=== PATIENT | female | born 1965 | race Caucasian/White ===

== ENCOUNTER 2018-02-02 10:16 | Emergency (ER) | payer SELFPAY ==
--- NOTE | 2018-02-02 11:08 | EDM.PDOC ---
ED HPI GENERAL MEDICAL PROBLEM - General Chief Complaint: Upper Extremity Injury/Pain Stated Complaint: RT HAND PAIN Time Seen by Provider: 02/02/18 11:00 Source of Information: Reports: Patient, RN Notes Reviewed History Limitations: Reports: No Limitations - History of Present Illness INITIAL COMMENTS - FREE TEXT/NARRATIVE: 52 year old female presents to the clinic with 3-4 day history of right hand pain with associated swelling to her fingers. She just moved to town and has been carrying a lot of boxes. She otherwise denies known injury. 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 The pain is diffuse to her hand and wrist. The pain radiates up her forearm. The pain started in her hand. No specific area of pain. She has tried taking Ibuprofen 800mg TID and Tylenol in between as well as some left over prednisone with no improvement. No numbness or tingling. No history of gout. No fever or chills. Right Hand Pain Score (Numeric/FACES): 8 - Related Data Allergies Allergy/AdvReac Type Severity Reaction Status Date / Time indomethacin [From Indocin] Allergy Anaphylactic Verified 02/02/18 10:22 Shock levetiracetam [From Keppra] Allergy Vomiting Verified 02/02/18 10:22 lidocaine Allergy Edema Verified 02/02/18 10:22 Home Meds: Home Meds ALPRAZolam [Xanax XR] 2 mg PO TID PRN 02/02/18 [History] Atenolol 100 mg PO DAILY 02/02/18 [History] Hydrochlorothiazide 25 mg PO DAILY 02/02/18 [History] lamoTRIgine [Lamotrigine] 300 mg PO BID 02/02/18 [History] Past Medical History Cardiovascular History: Reports: Hypertension Neurological History: Reports: Seizure Social & Family History - Tobacco Use Smoking Status *Q: Current Every Day Smoker Years of Tobacco use: 30 Packs/Tins Daily: 1.5 - Recreational Drug Use Recreational Drug Use: No Review of Systems - Review of Systems Review Of Systems: See Below Constitutional: Reports: No Symptoms. Denies: Chills, Fever Eyes: Denies: Blurred Vision, Vision Change Musculoskeletal: Reports: Hand Pain, Joint Swelling Skin: Reports: Other (swelling to right hand). Denies: Bruising, Erythema Neurological: Reports: No Symptoms. Denies: Numbness, Tingling, Weakness ED EXAM, GENERAL - Physical Exam Exam: See Below Exam Limited By: No Limitations General Appearance: Alert, WD/WN, No Apparent Distress Respiratory/Chest: No Respiratory Distress, Lungs Clear, Normal Breath Sounds Cardiovascular: Regular Rate, Rhythm Extremities: Limited Range of Motion (due to swelling), Other (The patient's right hand is mildly swollen. She has no bony point tenderness. Full ROM to fingers. Mild redness to 2nd and 3rd fingers. Neurovascular status intact. No deformity or crepitus. ) Neurological: Alert, Oriented, Normal Cognition, Normal Gait, No Motor/Sensory Deficits Skin Exam: Warm, Dry, Intact Course - Vital Signs Last Recorded V/S: Last Vital Signs Temp 97.7 F 02/02/18 10:26 Pulse 69 02/02/18 10:26 Resp 17 02/02/18 10:26 BP 155/74 H 02/02/18 10:26 Pulse Ox 98 02/02/18 10:26 - Orders/Labs/Meds Orders: Active Orders 24 hr Category Date Time Status Hand Comp Min 3V Rt [CR] Stat Exams 02/02/18 11:07 Ordered Meds: Medications Discontinued Medications Generic Name Dose Route Start Last Admin Trade Name Freq PRN Reason Stop Dose Admin Ketorolac Tromethamine 60 mg 02/02/18 11:56 Toradol IM 02/02/18 11:57 ONETIME ONE - Radiology Interpretation Free Text/Narrative:: Right hand x-rays obtained. No fracture appreciated. Patient does have diffuse arthritic changes on x-ray but no acute abnormality. Formal radiologist interpretation is pending. - Re-Assessments/Exams Free Text/Narrative Re-Assessment/Exam: 02/02/18 11:59 X-rays unremarkable. Patient was given Toradol 60mg IM x1 for pain. She has a prescription for Diclofenac. She has take one dose with no adverse reactions. She reports a history of allergy to Indomethacin, stating that it caused her to stop breathing. She tolerates other NSAIDS and prednisone. She will be placed in a removable splint. She should f/u in clinic or with ortho if not improved in 7-10 days. Sooner if worse. We will have her start the Diclofenac 50mg TID and take Tylenol PRN. Departure - Departure Time of Disposition: 11:56 Disposition: Home, Self-Care 01 Condition: Good Clinical Impression: Arthritis of hand, right - Discharge Information Referrals: PCP,None [Primary Care Provider] - Forms: ED Department Discharge Additional Instructions: Rest and ice as tolerated Wear splint as tolerated Diclofenac 50mg 3 times a day Tylenol 1000mg every 8 hours as needed Follow-up in our clinic if not improved in 7-10 days, sooner if worse. [facility] [phone]. We also have two Orthopedic Surgeons, Dr. Dong and Dr. Boyd - My Orders Last 24 Hours: My Active Orders 02/02/18 11:07 Hand Comp Min 3V Rt [CR] Stat - Assessment/Plan Last 24 Hours: My Active Orders 02/02/18 11:07 Hand Comp Min 3V Rt [CR] Stat
[2018-02-02] MEDS ORDERED: Ketorolac 60 MG/2 ML SDV IM ONE (11:56)
--- NOTE | 2018-02-03 12:53 | CR ---
Right hand: Four views of the right hand were obtained. Comparison: No prior hand exam. No fracture, dislocation or other bony abnormality is identified. Impression: 1. No abnormality is appreciated and four-view right hand study. Diagnostic code #1
== END 2018-02-02 12:06 | disposition home or self-care (01) ==
LOC: JD.ED 10:16
DX: M19.041 Primary osteoarthritis, right hand (principal); I10 Essential (primary) hypertension; F17.210 Nicotine dependence, cigarettes, uncomplicated; Z88.8 Allergy status to other drugs, medicaments and biological substances; Z79.899 Other long term (current) drug therapy
CPT/HCPCS: 73130; 96372; 99283; J1885

== ENCOUNTER 2018-12-13 12:15 | Emergency (ER) | payer SELFPAY ==
[2018-12-13] MEDS ORDERED: Sodium Chloride 0.9% 10 ML Syringe FLUSH PRN (12:25)
[2018-12-13] MEDS ORDERED: Ondansetron 4 MG/2 ML SDV IVPUSH ONE (13:00)
--- NOTE | 2018-12-13 13:07 | EDM.PDOC ---
ED HPI GENERAL MEDICAL PROBLEM - General Chief Complaint: Chest Pain Stated Complaint: [facility] Time Seen by Provider: 12/13/18 12:25 Source of Information: Reports: Patient, EMS History Limitations: Reports: No Limitations - History of Present Illness INITIAL COMMENTS - FREE TEXT/NARRATIVE: The patient presents by [facility] for chest pain. She went to the clinic to get her blood pressure checked and she mentioned she was having some chest pain. The pain is in the left chest, left arm and into the jaw. When I have her described the pain she says it is just uncomfortable. Her EKG looks good that was done by [facility]. She was given aspirin and 1 nitro. The nitro brought her pressure from 151 to 90s systolic. She has no shortness of breath. She has no fever, chills, cough, congestion or runny nose. She has no abdominal pain, nausea or vomiting. She had an MD about 11 years ago. She has a history of hypertension. She does not have diabetes or high cholesterol. She does smoke. Onset: Gradual Duration: Hour(s): Location: Reports: Chest Quality: Reports: Other (uncomfortable) Severity: Mild Improves with: Reports: None Worsens with: Reports: None Associated Symptoms: Reports: Chest Pain. 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, IV/IO, Nitroglycerin Left Chest Pain Score (Numeric/FACES): 3 - Related Data Allergies Allergy/AdvReac Type Severity Reaction Status Date / Time indomethacin [From Indocin] Allergy Anaphylactic Verified 12/13/18 12:30 Shock levetiracetam [From Keppra] Allergy Vomiting Verified 12/13/18 12:30 lidocaine Allergy Edema Verified 12/13/18 12:30 sumatriptan [From Imitrex] Allergy Cannot Verified 12/13/18 12:30 Remember Home Meds: Home Meds ALPRAZolam [Xanax XR] 2 mg PO TID PRN 02/02/18 [History] Atenolol 100 mg PO DAILY 02/02/18 [History] hydroCHLOROthiazide [Hydrochlorothiazide] 25 mg PO DAILY 02/02/18 [History] lamoTRIgine [Lamotrigine] 300 mg PO BID 02/02/18 [History] Acyclovir [Zovirax] 800 mg PO TID PRN 12/13/18 [History] Carisoprodol [Soma] 350 mg PO TID PRN 12/13/18 [History] Gemfibrozil [Lopid] 600 mg PO BID 12/13/18 [History] Hydrocodone/Acetaminophen [Hydrocodon-Acetaminophn 10-325] 1 tab PO Q6H PRN 11/02 [History] Lisinopril 5 mg PO DAILY 12/13/18 [History] Ondansetron [Zofran ODT] 4 mg PO Q6H PRN #20 tab.dis 12/13/18 [Rx] Potassium Chloride [Klor-Con M20] 20 meq PO BID 12/13/18 [History] Past Medical History Cardiovascular History: Reports: CAD, Hypertension, MD Musculoskeletal History: Reports: RA Neurological History: Reports: CVA, Seizure - Past Surgical History Cardiovascular Surgical History: Reports: Aneurysm ED ROS GENERAL - Review of Systems Review Of Systems: See Below Constitutional: Reports: No Symptoms HEENT: Reports: No Symptoms Respiratory: Reports: No Symptoms Cardiovascular: Reports: Chest Pain Endocrine: Reports: No Symptoms GI/Abdominal: Reports: No Symptoms : Reports: No Symptoms Musculoskeletal: Reports: No Symptoms ED EXAM, GENERAL - Physical Exam Exam: See Below Exam Limited By: No Limitations General Appearance: Alert, No Apparent Distress Ears: Normal External Exam Nose: Normal Inspection Throat/Mouth: Normal Inspection Neck: Normal Inspection, Supple, Non-Tender Respiratory/Chest: No Respiratory Distress, Lungs Clear, Normal Breath Sounds Cardiovascular: Regular Rate, Rhythm, No Edema, No Murmur GI/Abdominal: Soft, Non-Tender, No Organomegaly, No Mass Back Exam: Normal Inspection Extremities: Normal Inspection Neurological: Alert, Oriented, No Motor/Sensory Deficits EKG INTERPRETATION EKG Date: 12/13/18 Time: 12:37 Rhythm: NSR Rate (Beats/Min): 62 [place]: Normal P-Wave: Present QRS: Normal ST-T: Normal QT: Normal EKG Interpretation Comments: Q waves in the inferior leads Course - Vital Signs Last Recorded V/S: Last Vital Signs Temp 98.9 F 12/13/18 12:25 Pulse 72 12/13/18 12:25 Resp 18 12/13/18 12:25 BP 151/79 H 12/13/18 12:25 Pulse Ox 93 L 12/13/18 12:25 - Orders/Labs/Meds Orders: Active Orders 24 hr Category Date Time Status Cardiac Monitoring [RC] . DIRECTED Care 12/13/18 12:25 Active EKG Documentation Completion [RC] STAT Care 12/13/18 12:26 Active Oxygen Therapy [RC] PRN Care 12/13/18 12:25 Active Peripheral IV Care [RC] . DIRECTED Care 12/13/18 12:26 Active Chest 1V Frontal [CR] Stat Exams 12/13/18 12:26 Taken TROPONIN I [CHEM] Stat Lab 12/13/18 15:09 Ordered Sodium Chloride 0.9% [Saline Flush] Med 12/13/18 12:25 Active 10 ml FLUSH ASDIRECTED PRN Peripheral IV Insertion Adult [OM.PC] Stat Oth 12/13/18 12:25 Ordered Medication Orders Sodium Chloride (Saline Flush) 10 ml FLUSH ASDIRECTED PRN PRN Reason: Keep Vein Open Last Admin: 12/13/18 12:30 Dose: 10 ml Labs: Laboratory Tests 12/13/18 12/13/18 Range/Units 12:50 12:50 WBC 8.61 (3.98-10.04) K/mm3 RBC 4.44 (3.98-5.22) M/mm3 Hgb 14.5 (11.2-15.7) gm/L Hct 41.6 (34.1-44.9) % MCV 93.7 (79.4-94.8) fl MCH 32.7 H (25.6-32.2) pg MCHC 34.9 (32.2-35.5) g/dl RDW Std Deviation 45.9 (36.4-46.3) fL Plt Count 204 (182-369) K/mm3 MPV 9.8 (9.4-12.3) fl Neut % (Auto) 50.6 (34.0-71.1) % Lymph % (Auto) 36.0 (19.3-51.7) % [place] % (Auto) 8.2 (4.7-12.5) % Eos % (Auto) 4.4 (0.7-5.8) Baso % (Auto) 0.3 (0.1-1.2) % Neut # (Auto) 4.35 (1.56-6.13) K/mm3 Lymph # (Auto) 3.10 (1.18-3.74) K/mm3 [place] # (Auto) 0.71 H (0.24-0.36) K/mm3 Eos # (Auto) 0.38 H (0.04-0.36) K/mm3 Baso # (Auto) 0.03 (0.01-0.08) K/mm3 Sodium 136 (136-145) mEq/L Potassium 3.8 (3.5-5.1) mEq/L Chloride 100 (98-107) mEq/L Carbon Dioxide 26 (21-32) mEq/L Anion Gap 13.8 (5-15) BUN 13 (7-18) mg/dL Creatinine 0.9 (0.55-1.02) mg/dL Est Cr Clr Drug Dosing 80.80 mL/min Estimated GFR (MDRD) > 60 (>60) mL/min BUN/Creatinine Ratio 14.4 (14-18) Glucose 99 (74-106) mg/dL Calcium 8.8 (8.5-10.1) mg/dL Total Bilirubin 0.3 (0.2-1.0) mg/dL AST 20 (15-37) U/L ALT 39 (14-59) U/L Alkaline Phosphatase 128 H (46-116) U/L Troponin I < 0.017 (0.00-0.056) ng/mL Total Protein 7.1 (6.4-8.2) g/dl Albumin 3.5 (3.4-5.0) g/dl Globulin 3.6 gm/dL Albumin/Globulin Ratio 1.0 (1-2) Meds: Medications Generic Name Dose Route Start Last Admin Trade Name Freq PRN Reason Stop Dose Admin Sodium Chloride 10 ml 12/13/18 12:25 12/13/18 12:30 Saline Flush FLUSH 10 ml ASDIRECTED PRN Administration Keep Vein Open Discontinued Medications Generic Name Dose Route Start Last Admin Trade Name Freq PRN Reason Stop Dose Admin Famotidine 20 mg 12/13/18 14:36 12/13/18 14:47 Pepcid IVPUSH 12/13/18 14:37 20 mg ONETIME ONE Administration Ondansetron HCl 4 mg 12/13/18 13:00 12/13/18 13:09 Zofran IVPUSH 12/13/18 13:01 4 mg ONETIME ONE Administration - Re-Assessments/Exams Free Text/Narrative Re-Assessment/Exam: 12/13/18 13:09 I ordered an IV saline lock, EKG, CXR and labs. The patient did get aspirin and nitro. 12/13/18 15:13 Her CXR looks good. Her EKG shows nothing acute. Her CBC and CMP look good. Her troponin is normal. She feels nauseated so I ordered some zofran 4mg IV and some pepcid 20mg. I will do a repeat troponin. She has a bad sinus infection and she is on augmentin for that. I will get her on some zofran and have her take some pepcid daily. Departure - Departure Time of Disposition: 15:15 Disposition: Home, Self-Care 01 Condition: Good Clinical Impression: Atypical chest pain Prescriptions: Ondansetron [Zofran ODT] 4 mg PO Q6H PRN #20 tab.dis PRN Reason: Nausea\vomiting Referrals: Martha Chance, [employer] [Primary Care Provider] - 1 Week Forms: ED Department Discharge Additional Instructions: Take zofran every 6 hours as needed for nausea and vomiting. Take pepcid daily for 1 week. Drink plenty of fluids. Please return if you are worse. - My Orders Last 24 Hours: My Active Orders 12/13/18 12:25 Cardiac Monitoring [RC] . DIRECTED Oxygen Therapy [RC] PRN Sodium Chloride 0.9% [Saline Flush] 10 ml FLUSH ASDIRECTED PRN Peripheral IV Insertion Adult [OM.PC] Stat 12/13/18 12:26 EKG Documentation Completion [RC] STAT Peripheral IV Care [RC] . DIRECTED Chest 1V Frontal [CR] Stat 12/13/18 15:09 TROPONIN I [CHEM] Stat - Assessment/Plan Last 24 Hours: My Active Orders 12/13/18 12:25 Cardiac Monitoring [RC] . DIRECTED Oxygen Therapy [RC] PRN Sodium Chloride 0.9% [Saline Flush] 10 ml FLUSH ASDIRECTED PRN Peripheral IV Insertion Adult [OM.PC] Stat 12/13/18 12:26 EKG Documentation Completion [RC] STAT Peripheral IV Care [RC] . DIRECTED Chest 1V Frontal [CR] Stat 12/13/18 15:09 TROPONIN I [CHEM] Stat
[2018-12-13] MEDS ORDERED: Famotidine 20 MG/2 ML SDV IVPUSH ONE (14:36)
--- NOTE | 2018-12-14 15:18 | CR ---
Chest: Portable view of the chest was obtained. Comparison: No prior chest x-ray. Heart size and mediastinum are normal. Lungs are clear. Bony structures are grossly intact. Impression: 1. Nothing acute is appreciated on portable chest x-ray. Diagnostic code #1
== END 2018-12-13 15:43 | disposition home or self-care (01) ==
LOC: JD.ED 12:15
DX: R07.89 Other chest pain (principal); I10 Essential (primary) hypertension; I25.2 Old myocardial infarction; Z86.73 Personal history of transient ischemic attack (TIA), and cerebral infarction without residual deficits; Z79.899 Other long term (current) drug therapy; Z88.1 Allergy status to other antibiotic agents; Z88.8 Allergy status to other drugs, medicaments and biological substances
CPT/HCPCS: 36415; 71045; 80053; 84484; 85025; 93005; 96374; 96375; 99285; J2405; J3490; 93010

== ENCOUNTER 2019-06-06 13:37 | Emergency (ER) | payer OTHER ==
[2019-06-06] MEDS ORDERED: diphenhydrAMINE 50 MG/ML SDV IVPUSH ONE (14:04)
[2019-06-06] MEDS ORDERED: Prochlorperazine 10 MG/2 ML SDV IVPUSH ONE (14:04)
[2019-06-06] MEDS ORDERED: Sodium Chloride 0.9% 10 ML Syringe FLUSH PRN (14:04)
[2019-06-06] MEDS ORDERED: Ketorolac 30 MG/ML SDV IVPUSH ONE (14:04)
--- NOTE | 2019-06-06 15:10 | EDM.PDOC ---
ED HPI GENERAL MEDICAL PROBLEM - General Chief Complaint: Headache Stated Complaint: MIGRAINE Time Seen by Provider: 06/06/19 13:55 Source of Information: Reports: Patient History Limitations: Reports: No Limitations - History of Present Illness INITIAL COMMENTS - FREE TEXT/NARRATIVE: The patient presents with a headache. This has been going on for about 3 days. She has a history of migraines. She tried everything she knows to stop the headache but it is not helping. She went to the walk in clinic but they sent her here. She has pain that starts in the back of her head and comes to the front. She has nausea. She has some photophobia but no vision changes. She has no numbness or weakness. Onset: Gradual Duration: Day(s): (3) Location: Reports: Head Quality: Reports: Ache Severity: Severe Improves with: Reports: None Worsens with: Reports: None Associated Symptoms: Reports: Headaches, Nausea/Vomiting. Denies: Chest Pain, Cough, Fever/Chills, Shortness of Breath Headache Pain Score (Numeric/FACES): 6 - Related Data Allergies Allergy/AdvReac Type Severity Reaction Status Date / Time bee venom protein (honey bee) Allergy Cannot Verified 03/25/19 13:19 Remember indomethacin [From Indocin] Allergy Anaphylactic Verified 12/13/18 12:30 Shock lidocaine Allergy Edema Verified 12/13/18 12:30 sumatriptan [From Imitrex] Allergy Cannot Verified 12/13/18 12:30 Remember levetiracetam [From Keppra] AdvReac Vomiting Verified 03/25/19 13:18 Home Meds: Home Meds Atenolol 100 mg PO DAILY 02/02/18 [History] hydroCHLOROthiazide [Hydrochlorothiazide] 25 mg PO DAILY 02/02/18 [History] lamoTRIgine [Lamotrigine] 300 mg PO BID 02/02/18 [History] Acyclovir [Zovirax] 800 mg PO TID PRN 12/13/18 [History] Carisoprodol [Soma] 350 mg PO TID PRN 12/13/18 [History] Gemfibrozil [Lopid] 600 mg PO BID 12/13/18 [History] Hydrocodone/Acetaminophen [Hydrocodon-Acetaminophn 10-325] 1 tab PO Q6H PRN 11/02 [History] Lisinopril 5 mg PO DAILY 12/13/18 [History] Ondansetron [Zofran ODT] 4 mg PO Q6H PRN #20 tab.dis 12/13/18 [Rx] Potassium Chloride [Klor-Con M20] 20 meq PO BID 12/13/18 [History] ALPRAZolam [Xanax] 2 mg PO BID PRN 06/06/19 [History] Past Medical History Cardiovascular History: Reports: CAD, Hypertension, [place] Musculoskeletal History: Reports: RA Neurological History: Reports: CVA, Seizure Other Neuro History: right cva - Past Surgical History Cardiovascular Surgical History: Reports: Aneurysm Other Cardiovascular Surgeries/Procedures: brain Social & Family History - Tobacco Use Smoking Status *Q: Current Every Day Smoker Years of Tobacco use: 40 Packs/Tins Daily: 1.5 - Caffeine Use Caffeine Use: Reports: Soda, Tea - Recreational Drug Use Recreational Drug Use: No ED ROS GENERAL - Review of Systems Review Of Systems: See Below Constitutional: Reports: No Symptoms HEENT: Reports: No Symptoms Respiratory: Reports: No Symptoms Cardiovascular: Reports: No Symptoms Endocrine: Reports: No Symptoms GI/Abdominal: Reports: Nausea. Denies: Abdominal Pain, Vomiting : Reports: No Symptoms Musculoskeletal: Reports: No Symptoms Skin: Reports: No Symptoms Neurological: Reports: Headache - Physical Exam Exam: See Below Exam Limited By: No Limitations General Appearance: Alert, No Apparent Distress Ears: Normal External Exam Nose: Normal Inspection Head Exam: Atraumatic, Normocephalic Neck: Normal Inspection Respiratory/Chest: No Respiratory Distress, Lungs Clear, Normal Breath Sounds Cardiovascular: Regular Rate, Rhythm, No Edema, No Murmur GI/Abdominal: Soft, Non-Tender, No Organomegaly, No Mass Neuro Exam (Abbreviated): Alert, Oriented, No Motor/Sensory Deficits Course - Vital Signs Last Recorded V/S: Last Vital Signs Temp 97.6 F 06/06/19 13:45 Pulse 70 06/06/19 13:45 Resp 20 06/06/19 13:45 BP 149/74 H 06/06/19 13:45 Pulse Ox 98 06/06/19 13:45 - Orders/Labs/Meds Orders: Active Orders 24 hr Category Date Time Status Peripheral IV Care [RC] . DIRECTED Care 06/06/19 14:04 Active Sodium Chloride 0.9% [Saline Flush] Med 06/06/19 14:04 Active 10 ml FLUSH ASDIRECTED PRN Peripheral IV Insertion Adult [OM.PC] Routine Oth 06/06/19 14:04 Ordered Medication Orders Sodium Chloride (Saline Flush) 10 ml FLUSH ASDIRECTED PRN PRN Reason: Keep Vein Open Last Admin: 06/06/19 14:31 Dose: 10 ml Meds: Medications Generic Name Dose Route Start Last Admin Trade Name Freq PRN Reason Stop Dose Admin Sodium Chloride 10 ml 06/06/19 14:04 06/06/19 14:31 Saline Flush FLUSH 10 ml ASDIRECTED PRN Administration Keep Vein Open Discontinued Medications Generic Name Dose Route Start Last Admin Trade Name Freq PRN Reason Stop Dose Admin Diphenhydramine HCl 50 mg 06/06/19 14:04 06/06/19 14:31 Benadryl IVPUSH 06/06/19 14:05 50 mg ONETIME ONE Administration Ketorolac Tromethamine 30 mg 06/06/19 14:04 06/06/19 14:28 Toradol IVPUSH 06/06/19 14:05 30 mg ONETIME ONE Administration Prochlorperazine Edisylate 10 mg 06/06/19 14:04 06/06/19 14:26 Compazine IVPUSH 06/06/19 14:05 10 mg ONETIME ONE Administration - Re-Assessments/Exams Free Text/Narrative Re-Assessment/Exam: 06/06/19 15:09 I ordered an IV saline lock, compazine 10mg IV, benadryl 50mg IV and toradol 30mg IV. 06/06/19 15:11 She feels better. I will discharge her home. Departure - Departure Time of Disposition: 15:15 Disposition: Home, Self-Care 01 Condition: Good Clinical Impression: Migraine - Discharge Information *PRESCRIPTION DRUG MONITORING PROGRAM REVIEWED*: No *COPY OF PRESCRIPTION DRUG MONITORING REPORT IN PATIENT VICKI: No Referrals: Martha Chance NP [Primary Care Provider] - 1 Week Forms: ED Department Discharge Additional Instructions: Go home and rest in a dark quiet room. Please return if you are worse. - My Orders Last 24 Hours: My Active Orders 06/06/19 14:04 Peripheral IV Care [RC] . DIRECTED Sodium Chloride 0.9% [Saline Flush] 10 ml FLUSH ASDIRECTED PRN Peripheral IV Insertion Adult [OM.PC] Routine - Assessment/Plan Last 24 Hours: My Active Orders 06/06/19 14:04 Peripheral IV Care [RC] . DIRECTED Sodium Chloride 0.9% [Saline Flush] 10 ml FLUSH ASDIRECTED PRN Peripheral IV Insertion Adult [OM.PC] Routine
== END 2019-06-06 15:20 | disposition home or self-care (01) ==
LOC: JD.ED 13:37
DX: G43.909 Migraine, unspecified, not intractable, without status migrainosus (principal); I10 Essential (primary) hypertension; I25.10 Atherosclerotic heart disease of native coronary artery without angina pectoris; I25.2 Old myocardial infarction; M06.9 Rheumatoid arthritis, unspecified; F17.210 Nicotine dependence, cigarettes, uncomplicated; Z91.030 Bee allergy status; Z88.8 Allergy status to other drugs, medicaments and biological substances; Z79.899 Other long term (current) drug therapy
CPT/HCPCS: 96374; 96375; 99283; J0780; J1200; J1885

== ENCOUNTER 2019-06-11 08:03 | Emergency (ER) | payer OTHER ==
--- NOTE | 2019-06-11 08:59 | EDM.PDOC ---
ED HPI GENERAL MEDICAL PROBLEM - General Chief Complaint: Chest Pain Stated Complaint: CHEST PAIN Time Seen by Provider: 06/11/19 08:14 Source of Information: Reports: Patient, Family () History Limitations: Reports: No Limitations - History of Present Illness INITIAL COMMENTS - FREE TEXT/NARRATIVE: The patient states that she felt central retrosternal pressure when she woke up at 5:30 this morning. She describes the sensation as a pain, not a discomfort. It is constant, and she has not identified any modifiers. The pain radiates to her left scapular area, and down her left upper extremity to her forearm, however, the left upper extremity pain is intermittent, while the chest pain is constant. She also reports a sharp pain to her upper left back, medial to her scapula. She states that she developed shortness of breath at rest around 6:30. She has had nausea, and she reports a sense of impending doom, although she states that she also has anxiety, and cannot tell the difference. She denies diaphoresis or clamminess. No prior similar symptoms. The patient states that she took a Zantac right at 5:30, followed by her blood pressure medicine and a [place], without relief of symptoms. The patient reports that she was told that she had a "silent" heart attack around 2008. She states that her heart enzymes were elevated, and a coronary angiogram was recommended, but she left the hospital (probably AMA) before that study could be done. The patient's PCP is Martha Chance NP. Her Standards Engineer was at [facility]; she does not recall his name. Her Soil Specialist is Dr. Leonel Soria. Chest Pain Score (Numeric/FACES): 6 - Related Data Allergies Allergy/AdvReac Type Severity Reaction Status Date / Time bee venom protein (honey bee) Allergy Cannot Verified 06/11/19 08:12 Remember indomethacin [From Indocin] Allergy Anaphylactic Verified 06/11/19 08:12 Shock lidocaine Allergy Edema Verified 06/11/19 08:12 sumatriptan [From Imitrex] Allergy Cannot Verified 06/11/19 08:12 Remember levetiracetam [From Keppra] AdvReac Vomiting Verified 06/11/19 08:12 Home Meds: Home Meds Atenolol 100 mg PO DAILY 02/02/18 [History] hydroCHLOROthiazide [Hydrochlorothiazide] 25 mg PO DAILY 02/02/18 [History] lamoTRIgine [Lamotrigine] 300 mg PO BID 02/02/18 [History] Acyclovir [Zovirax] 800 mg PO TID PRN 12/13/18 [History] Carisoprodol [Soma] 350 mg PO TID PRN 12/13/18 [History] Gemfibrozil [Lopid] 600 mg PO BID 12/13/18 [History] Hydrocodone/Acetaminophen [Hydrocodon-Acetaminophn 10-325] 1 tab PO Q6H PRN 11/02 [History] Lisinopril 5 mg PO DAILY 12/13/18 [History] Ondansetron [Zofran ODT] 4 mg PO Q6H PRN #20 tab.dis 12/13/18 [Rx] Potassium Chloride [Klor-Con M20] 20 meq PO BID 12/13/18 [History] ALPRAZolam [Xanax] 2 mg PO BID PRN 06/06/19 [History] Past Medical History Cardiovascular History: Reports: CAD (possible), High Cholesterol, Hypertension , [place] (possible) Gastrointestinal History: Reports: Diverticulosis (with diverticulitis), GERD, Hiatal Hernia Genitourinary History: Reports: Urinary Incontinence (stress incontinence) Musculoskeletal History: Reports: Back Pain, Chronic (2 DDD), Osteoarthritis, RA (possible - not diagnosed) Neurological History: Reports: Cerebral Aneurysms (s/p coiling), 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), Headaches, Chronic, Seizure (x 2) Psychiatric History: Reports: Anxiety, Depression - Past Surgical History Head Surgeries/Procedures: Reports: Other (See Below) (Coiling of cerebral aneurysms) HEENT Surgical History: Reports: Adenoidectomy, Naso-Sinus Surgery (sinus polypectomy) GI Surgical History: Denies: Colonoscopy Female Surgical History: Reports: D&C (x 5 -10), Endometrial Ablation Oncologic Surgical History: Reports: Biopsy of Breast (left, benign) Social & Family History - Tobacco Use Smoking Status *Q: Current Every Day Smoker Years of Tobacco use: 42 Packs/Tins Daily: 1 - Caffeine Use Caffeine Use: Reports: Soda, Tea - Alcohol Use Alcohol Use History: Yes Alcohol Use Frequency: Rarely - Recreational Drug Use Recreational Drug Use: No - Living Situation & Occupation Living situation: Reports: , with Spouse Occupation: Employed ([employer]) ED ROS GENERAL - Review of Systems Review Of Systems: ROS reveals no pertinent complaints other than HPI. ED EXAM, GENERAL - Physical Exam Exam: See Below Exam Limited By: No Limitations General Appearance: Alert, WD/WN, No Apparent Distress Eye Exam: Bilateral Eye: EOMI, Normal Inspection Ears: Normal External Exam, Hearing Grossly Normal Nose: Normal Inspection Throat/Mouth: Normal Inspection, Normal Lips, Normal Voice, No Airway Compromise Head: Atraumatic, Normocephalic Neck: Normal Inspection, Full Range of Motion Respiratory/Chest: No Respiratory Distress, Lungs Clear, Normal Breath Sounds, No Accessory Muscle Use, Chest Non-Tender (including the sternal area) Cardiovascular: Normal Peripheral Pulses, Regular Rate, Rhythm, No Edema, No Gallop, No JVD, No Murmur, No Rub Peripheral Pulses: 4+: Radial (L), Radial (R) GI/Abdominal: Normal Bowel Sounds, Soft, Non-Tender (including the epigastrium) , No Organomegaly, No Distention, No Abnormal Bruit, No Mass, Other (Obese) (Female) Exam: Deferred Rectal (Female) Exam: Deferred Back Exam: Normal Inspection, Full Range of Motion, Other (No tenderness to the left scapula or parascapular his culture) Extremities: Normal Inspection, Normal Range of Motion, No Pedal Edema, Normal Capillary Refill Neurological: Alert, Oriented, Normal Cognition, No Motor/Sensory Deficits Psychiatric: Normal Affect Skin Exam: Warm, Dry, Intact, Normal Color, No Rash EKG INTERPRETATION EKG Date: 06/11/19 Time: 08:11 Rhythm: NSR Rate (Beats/Min): 64 [place]: Normal P-Wave: Present QRS: RBBB (incomplete) ST-T: Normal QT: Normal Comparison: No Change (12/13/2018) Course - Vital Signs Last Recorded V/S: Last Vital Signs Temp 36.8 C 06/11/19 08:10 Pulse 66 06/11/19 08:10 Resp 12 06/11/19 08:10 BP 153/65 H 06/11/19 08:10 Pulse Ox 99 06/11/19 08:10 - Orders/Labs/Meds Orders: Active Orders 24 hr Category Date Time Status EKG Documentation Completion [RC] STAT Care 06/11/19 08:25 Active Labs: Laboratory Tests 06/11/19 06/11/19 06/11/19 Range/Units 08:20 08:20 08:20 WBC 9.59 (3.98-10.04) K/mm3 RBC 4.60 (3.98-5.22) M/mm3 Hgb 15.3 (11.2-15.7) gm/L Hct 43.3 (34.1-44.9) % MCV 94.1 (79.4-94.8) fl MCH 33.3 H (25.6-32.2) pg MCHC 35.3 (32.2-35.5) g/dl RDW Std Deviation 48.2 H (36.4-46.3) fL Plt Count 289 D (182-369) K/mm3 MPV 9.9 (9.4-12.3) fl Neutrophils % (Manual) 55 (40-60) % Band Neutrophils % 0 (0-10) % Lymphocytes % (Manual) 33 (20-40) % Atypical Lymphs % 0 % Monocytes % (Manual) 7 (2-10) % Eosinophils % (Manual) 5 (0.7-5.8) % Basophils % (Manual) 0 L (0.1-1.2) Platelet Estimate Adequate RBC Morph Comment Normal D-Dimer, Quantitative 0.23 (0.19-0.50) mg/L Sodium 138 (136-145) mEq/L Potassium 3.9 (3.5-5.1) mEq/L Chloride 103 (98-107) mEq/L Carbon Dioxide 28 (21-32) mEq/L Anion Gap 10.9 (5-15) BUN 14 (7-18) mg/dL Creatinine 0.9 (0.55-1.02) mg/dL Est Cr Clr Drug Dosing 79.87 mL/min Estimated GFR (MDRD) > 60 (>60) mL/min BUN/Creatinine Ratio 15.6 (14-18) Glucose 87 (74-106) mg/dL Calcium 9.1 (8.5-10.1) mg/dL Total Bilirubin 0.4 (0.2-1.0) mg/dL AST 11 L (15-37) U/L ALT 17 (14-59) U/L Alkaline Phosphatase 129 H (46-116) U/L Troponin I < 0.017 (0.00-0.056) ng/mL Total Protein 7.7 (6.4-8.2) g/dl Albumin 3.8 (3.4-5.0) g/dl Globulin 3.9 gm/dL Albumin/Globulin Ratio 1.0 (1-2) 06/11/19 Range/Units 09:33 WBC (3.98-10.04) K/mm3 RBC (3.98-5.22) M/mm3 Hgb (11.2-15.7) gm/L Hct (34.1-44.9) % MCV (79.4-94.8) fl MCH (25.6-32.2) pg MCHC (32.2-35.5) g/dl RDW Std Deviation (36.4-46.3) fL Plt Count (182-369) K/mm3 MPV (9.4-12.3) fl Neutrophils % (Manual) (40-60) % Band Neutrophils % (0-10) % Lymphocytes % (Manual) (20-40) % Atypical Lymphs % % Monocytes % (Manual) (2-10) % Eosinophils % (Manual) (0.7-5.8) % Basophils % (Manual) (0.1-1.2) Platelet Estimate RBC Morph Comment D-Dimer, Quantitative (0.19-0.50) mg/L Sodium (136-145) mEq/L Potassium (3.5-5.1) mEq/L Chloride (98-107) mEq/L Carbon Dioxide (21-32) mEq/L Anion Gap (5-15) BUN (7-18) mg/dL Creatinine (0.55-1.02) mg/dL Est Cr Clr Drug Dosing mL/min Estimated GFR (MDRD) (>60) mL/min BUN/Creatinine Ratio (14-18) Glucose (74-106) mg/dL Calcium (8.5-10.1) mg/dL Total Bilirubin (0.2-1.0) mg/dL AST (15-37) U/L ALT (14-59) U/L Alkaline Phosphatase (46-116) U/L Troponin I < 0.017 (0.00-0.056) ng/mL Total Protein (6.4-8.2) g/dl Albumin (3.4-5.0) g/dl Globulin gm/dL Albumin/Globulin Ratio (1-2) Meds: Medications Discontinued Medications Generic Name Dose Route Start Last Admin Trade Name Lashanda PRN Reason Stop Dose Admin Al Hydroxide/Mg Hydroxide 30 ml 06/11/19 09:51 06/11/19 09:54 Mag-Al Plus PO 06/11/19 09:52 30 ml ONETIME ONE Administration Al Hydroxide/Mg Hydroxide 30 0 ml 06/11/19 09:28 ml/ Lidocaine HCl 15 ml PO 06/11/19 09:29 ONETIME STA Ondansetron HCl 4 mg 06/11/19 09:41 06/11/19 09:44 Zofran IVPUSH 06/11/19 09:42 4 mg ONETIME ONE Administration - Re-Assessments/Exams Free Text/Narrative Re-Assessment/Exam: 06/11/19 09:20 There are some features of the patient's presentation that are concerning for a cardiac etiology, while there are other features that speak against this. I have ordered a workup that included blood work, a chest x-ray. Her ECG does not show ischemic changes. I have also ordered a second troponin to be drawn at 09: 30 - 4 hours after her symptoms began. 06/11/19 09:23 2-view chest radiograph appears to be grossly normal. The cardiac silhouette is within normal limits. No pulmonary vascular congestion. No pleural effusions. No focal infiltrate. No pneumothorax. Formal read per the Radiologist pending. 06/11/19 09:38 I ordered a GI cocktail, noting that the patient's medical record indicates an allergy to lidocaine, however, it reports "edema". The patient tells us, however , that it causes respiratory distress, therefore I canceled the GI cocktail. 06/11/19 09:55 Instead of a GI cocktail, the patient will be given just Maalox. 06/11/19 10:21 Test results discussed with the patient. The patient states that the Maalox got rid of all of her pain. The patient's CBC is unremarkable. Her CMP is unremarkable. Her troponin is undetectably low x 2. Her D-dimer is undetectably low. Based on the patient's workup, her pain is most likely due to GERD or gastritis. I am recommending that she switch to [id number] famotidine, and begin taking it on a regular basis, as opposed to the ranitidine that she has been taking on an as-needed basis. Alternatively, the patient could follow- up with her PCP to discuss getting an EGD. Departure - Departure Time of Disposition: 10:26 Disposition: Home, Self-Care 01 Condition: Good Clinical Impression: GERD (gastroesophageal reflux disease) Referrals: Martha Chance NP [Primary Care Provider] - Leonel Soria MD [Physician] - Forms: ED Department Discharge, ED Return to Work/School Form Additional Instructions: You were seen in the emergency room after developing lower chest pain, nausea, and anxiety. Workup in the ER included blood work, a chest x-ray, and an ECG. Your entire workup was negative. You have not suffered a heart attack. Your symptoms improved after you were given Maalox, strongly indicating that your pain was either from your esophagus or your stomach. As discussed, we recommend that you switch from Zantac to generic Pepcid = famotidine, and that you take one tablet either once or twice a day, on a regular basis, not on an as-needed basis. In addition, you can discuss the option of getting an EGD (scope of your stomach ) with your PCP, Martha Chance NP. A note for work has been provided to you. If any other problems, please do not hesitate to return to the ER. - My Orders Last 24 Hours: My Active Orders 06/11/19 08:25 EKG Documentation Completion [RC] STAT - Assessment/Plan Last 24 Hours: My Active Orders 06/11/19 08:25 EKG Documentation Completion [RC] STAT
--- NOTE | 2019-06-11 09:27 | CR ---
Chest: Two views of the chest were obtained. Comparison: Prior chest x-ray of 12/13/18. Heart size and mediastinum are normal. Lungs are clear. Bony structures appear within normal limits for the patient's age. Impression: 1. Nothing acute is seen on two-view chest x-ray. Diagnostic code #1
[2019-06-11] MEDS ORDERED: Alum Hydrox/Mag Hydrox/Simeth 30 ML, Lidocaine 2% 15 ML PO STA ×2 (09:28)
[2019-06-11] MEDS ORDERED: Ondansetron 4 MG/2 ML SDV IVPUSH ONE (09:41)
[2019-06-11] MEDS ORDERED: Aluminum Hydroxide/Magnesium Hydroxide/Simethicone Susp 30 ML Cup PO ONE (09:51)
== END 2019-06-11 10:48 | disposition home or self-care (01) ==
LOC: JD.ED 08:03
DX: K21.9 Gastro-esophageal reflux disease without esophagitis (principal); F17.210 Nicotine dependence, cigarettes, uncomplicated; I10 Essential (primary) hypertension; I25.10 Atherosclerotic heart disease of native coronary artery without angina pectoris; E78.00 Pure hypercholesterolemia, unspecified; I25.2 Old myocardial infarction; F41.9 Anxiety disorder, unspecified; F32.9 Major depressive disorder, single episode, unspecified; Z79.899 Other long term (current) drug therapy
CPT/HCPCS: 36415; 71046; 80053; 84484; 85007; 85027; 85379; 93005; 96374; 99285; A9270; J2405

== ENCOUNTER 2019-08-05 14:44 | Emergency (ER) | payer OTHER ==
[2019-08-05] MEDS ORDERED: FLU Vacc QS2019-20(6MOS+)/PF 60 MCG/0.5 ML SYRINGE IM ONE (15:15)
--- NOTE | 2019-08-05 15:29 | EDM.PDOC ---
ED HPI GENERAL MEDICAL PROBLEM - General Chief Complaint: General Stated Complaint: HEADACHE Time Seen by Provider: 08/05/19 15:29 - History of Present Illness INITIAL COMMENTS - FREE TEXT/NARRATIVE: 54-year-old female presents emergency room with abdominal pain and with a migraine. patient was seen at the [facility] a day or 2 ago started on Cipro and and Flagyl for presumed diverticulitis on the right side. She's had a migraine headache it kind of comes and goes but really stepped it last night quite severe. The patient felt this abdominal discomfort after a viral type illness. And it is bothering her for the last 4-5 days. This migraine is acting like a typical migraine for her. She has intermittent nausea photophobia and a headache she had a visual aura before it started. Generalized Pain Score (Numeric/FACES): 6 - Related Data Allergies Allergy/AdvReac Type Severity Reaction Status Date / Time bee venom protein (honey bee) Allergy Cannot Verified 08/05/19 15:00 Remember indomethacin [From Indocin] Allergy Anaphylactic Verified 08/05/19 15:00 Shock lidocaine Allergy Edema Verified 08/05/19 15:00 sumatriptan [From Imitrex] Allergy Cannot Verified 08/05/19 15:00 Remember levetiracetam [From Keppra] AdvReac Vomiting Verified 08/05/19 15:00 Home Meds: Home Meds Atenolol 100 mg PO DAILY 02/02/18 [History] hydroCHLOROthiazide [Hydrochlorothiazide] 25 mg PO DAILY 02/02/18 [History] lamoTRIgine [Lamotrigine] 300 mg PO BID 02/02/18 [History] Acyclovir [Zovirax] 800 mg PO TID PRN 12/13/18 [History] Carisoprodol [Soma] 350 mg PO TID PRN 12/13/18 [History] Gemfibrozil [Lopid] 600 mg PO BID 12/13/18 [History] Hydrocodone/Acetaminophen [Hydrocodon-Acetaminophn 10-325] 1 tab PO Q6H PRN 11/02 [History] Lisinopril 5 mg PO DAILY 12/13/18 [History] Ondansetron [Zofran ODT] 4 mg PO Q6H PRN #20 tab.dis 12/13/18 [Rx] Potassium Chloride [Klor-Con M20] 20 meq PO BID 12/13/18 [History] ALPRAZolam [Xanax] 2 mg PO BID PRN 06/06/19 [History] Ciprofloxacin HCl [Cipro] 500 mg PO BID 08/05/19 [History] metroNIDAZOLE [Flagyl] 500 mg PO Q8HR 08/05/19 [History] Past Medical History HEENT History: Reports: Impaired Vision Other HEENT History: wears eyeglasses. Polyps in nose. Cardiovascular History: Reports: CAD, High Cholesterol, Hypertension, [place] Other Cardiovascular History: hypokalemia Respiratory History: Reports: Asthma Gastrointestinal History: Reports: Diverticulosis, GERD, Hiatal Hernia Genitourinary History: Reports: Urinary Incontinence BUDGET CONTROLLER History: Reports: Endometriosis, Musculoskeletal History: Reports: Back Pain, Chronic, Osteoarthritis, RA Neurological History: Reports: Cerebral Aneurysms, CVA, Headaches, Chronic, Seizure Other Neuro History: right cva Psychiatric History: Reports: Anxiety, Depression Other Psychiatric History: cigarettes Endocrine/Metabolic History: Reports: Obesity/BMI 30+ Hematologic History: Reports: Anemia Other Hematologic History: in Immunologic History: Reports: None Oncologic (Cancer) History: Reports: None Dermatologic History: Reports: None - Infectious Disease History Infectious Disease History: Reports: Chicken Pox - Past Surgical History Head Surgeries/Procedures: Reports: Other (See Below) HEENT Surgical History: Reports: Adenoidectomy, Naso-Sinus Surgery Other HEENT Surgeries/Procedures: Polyps in the sinuses removed once, but they grew back. Female Surgical History: Reports: Section, D&C, Endometrial Ablation Other Neurological Surgeries/Procedures: Coiled the brain anuerysms. Musculoskeletal Surgical History: Reports: None Oncologic Surgical History: Reports: Biopsy of Breast Social & Family History - Tobacco Use Smoking Status *Q: Current Every Day Smoker Years of Tobacco use: 42 Packs/Tins Daily: 1 - Caffeine Use Caffeine Use: Reports: Soda - Recreational Drug Use Recreational Drug Use: No - Living Situation & Occupation Living situation: Reports: , with Spouse Occupation: Employed ([employer]) ED ROS GENERAL - Review of Systems Review Of Systems: See Below Constitutional: Reports: No Symptoms HEENT: Reports: Other (Photophobia) Respiratory: Reports: No Symptoms Cardiovascular: Reports: No Symptoms GI/Abdominal: Reports: Abdominal Pain, Nausea. Denies: Constipation, Diarrhea, Vomiting : Reports: No Symptoms Musculoskeletal: Reports: No Symptoms Skin: Reports: No Symptoms Neurological: Reports: Headache Psychiatric: Reports: No Symptoms Hematologic/Lymphatic: Reports: No Symptoms ED EXAM, GENERAL - Physical Exam Exam: See Below Exam Limited By: No Limitations General Appearance: Alert, No Apparent Distress Eye Exam: Bilateral Eye: Normal Inspection, PERRL Ears: Normal External Exam, Normal Canal, Hearing Grossly Normal, Normal TMs Nose: Normal Inspection, Normal Mucosa, No Blood Throat/Mouth: Normal Inspection, Normal Lips, Normal Oropharynx, Normal Voice, No Airway Compromise, Other (Dentures in place) Head: Atraumatic, Normocephalic Neck: Normal Inspection, Supple, Non-Tender, Full Range of Motion. No: Lymphadenopathy (L), Lymphadenopathy (R) Respiratory/Chest: No Respiratory Distress, Lungs Clear, Normal Breath Sounds Cardiovascular: Regular Rate, Rhythm, No Edema, No Murmur GI/Abdominal: Normal Bowel Sounds, Soft, Other (She has some right lower quadrant discomfort no rigidity rebound or guarding noted) Back Exam: Normal Inspection. No: CVA Tenderness (L), CVA Tenderness (R) Extremities: Normal Inspection, Normal Range of Motion, Non-Tender Neurological: Alert, Oriented, CN II-XII Intact, Normal Cognition, No Motor/ Sensory Deficits Psychiatric: Normal Affect, Normal Mood Skin Exam: Warm, Dry, Intact Course - Vital Signs Last Recorded V/S: Last Vital Signs Temp 36.0 C 08/05/19 14:50 Pulse 76 08/05/19 14:50 Resp 16 08/05/19 14:50 BP 157/83 H 08/05/19 14:50 Pulse Ox 98 08/05/19 14:50 - Orders/Labs/Meds Orders: Active Orders 24 hr Category Date Time Status Influenza Vaccine Charge [RC] .DISCHARGE Care 08/05/19 15:06 Active Sodium Chloride 0.9% [Saline Flush] Med 08/05/19 17:46 Active 10 ml FLUSH ONETIME PRN Medication Orders Sodium Chloride (Saline Flush) 10 ml FLUSH ONETIME PRN PRN Reason: KEEP VEIN OPEN Last Admin: 08/05/19 18:23 Dose: 10 ml Labs: Laboratory Tests 08/05/19 08/05/19 08/05/19 Range/Units 16:10 16:10 17:20 WBC 8.72 (3.98-10.04) K/mm3 RBC 4.37 (3.98-5.22) M/mm3 Hgb 14.2 (11.2-15.7) gm/dl Hct 40.7 (34.1-44.9) % MCV 93.1 (79.4-94.8) fl MCH 32.5 H (25.6-32.2) pg MCHC 34.9 (32.2-35.5) g/dl RDW Std Deviation 42.2 (36.4-46.3) fL Plt Count 189 D (182-369) K/mm3 MPV 10.0 (9.4-12.3) fl Neutrophils % (Manual) 52 (40-60) % Band Neutrophils % 0 (0-10) % Lymphocytes % (Manual) 33 (20-40) % Atypical Lymphs % 0 % Monocytes % (Manual) 2 (2-10) % Eosinophils % (Manual) 13 H (0.7-5.8) % Basophils % (Manual) 0 L (0.1-1.2) Platelet Estimate Adequate RBC Morph Comment Normal Sodium 140 (136-145) mEq/L Potassium 3.3 L (3.5-5.1) mEq/L Chloride 103 (98-107) mEq/L Carbon Dioxide 29 (21-32) mEq/L Anion Gap 11.3 (5-15) BUN 16 (7-18) mg/dL Creatinine 0.9 (0.55-1.02) mg/dL Est Cr Clr Drug Dosing 77.27 mL/min Estimated GFR (MDRD) > 60 (>60) mL/min BUN/Creatinine Ratio 17.8 (14-18) Glucose 95 (74-106) mg/dL Calcium 8.8 (8.5-10.1) mg/dL Total Bilirubin 0.2 (0.2-1.0) mg/dL AST 14 L (15-37) U/L ALT 22 (14-59) U/L Alkaline Phosphatase 107 (46-116) U/L Total Protein 6.8 (6.4-8.2) g/dl Albumin 3.4 (3.4-5.0) g/dl Globulin 3.4 gm/dL Albumin/Globulin Ratio 1.0 (1-2) Urine Color Yellow (Yellow) Urine Appearance Clear (Clear) Urine pH 7.0 (5.0-8.0) Ur Specific [place] 1.015 (1.005-1.030) Urine Protein Negative (Negative) Urine Glucose (UA) Negative (Negative) Urine Ketones Negative (Negative) Urine Occult Blood Negative (Negative) Urine Nitrite Negative (Negative) Urine Bilirubin Negative (Negative) Urine Urobilinogen 0.2 (0.2-1.0) Ur Leukocyte Esterase Negative (Negative) Urine RBC Not seen (0-5) /hpf Urine WBC Not seen (0-5) /hpf Ur Squamous Epith Cells 0-5 (0-5) /hpf Urine Bacteria Not seen (FEW) /hpf Urine Mucus Not seen (FEW) /hpf Meds: Medications Generic Name Dose Route Start Last Admin Trade Name Freq PRN Reason Stop Dose Admin Sodium Chloride 10 ml 08/05/19 17:46 08/05/19 18:23 Saline Flush FLUSH 10 ml ONETIME PRN Administration KEEP VEIN OPEN Discontinued Medications Generic Name Dose Route Start Last Admin Trade Name Freq PRN Reason Stop Dose Admin Diatrizoate Meglum/Diatrizoate Sod 60 ml 08/05/19 17:46 Gastrografin 37% PO 08/05/19 17:47 ONETIME ONE Diphenhydramine HCl 50 mg 08/05/19 15:48 08/05/19 16:43 Benadryl IVPUSH 08/05/19 15:49 50 mg ONETIME ONE Administration Lactated Ringer's 1,000 mls @ 999 mls/hr 08/05/19 15:48 08/05/19 16:44 Ringers, Lactated IV 08/05/19 16:48 999 mls/hr .BOLUS ONE Administration Influenza Virus Vaccine 1 each 08/05/19 15:06 Pharmacy To Dose - Influenza Vaccine IM 08/05/19 15:07 ONETIME ONE Influenza Virus Vaccine 60 mcg 08/05/19 15:15 08/05/19 16:43 Fluzone Quad [id number] Syringe IM 08/05/19 15:16 60 mcg .ONCE ONE Administration Iopamidol 100 ml 08/05/19 17:46 Isovue-300 (61%) IVPUSH 08/05/19 17:47 ONETIME ONE Ketorolac Tromethamine 30 mg 08/05/19 17:50 08/05/19 18:23 Toradol IVPUSH 08/05/19 17:51 30 mg ONETIME ONE Administration Ondansetron HCl 4 mg 08/05/19 15:48 08/05/19 16:43 Zofran IVPUSH 08/05/19 15:49 4 mg ONETIME ONE Administration - Re-Assessments/Exams Free Text/Narrative Re-Assessment/Exam: 08/05/19 15:55 Will treat her migraine. With fluids Benadryl and Zofran check labs with the abdominal discomfort anticipate CT with right lower quadrant pain. 08/05/19 17:48 Patient's labs are normal. Patient really wanted abdominal CT and given her right lower quadrant discomfort apparently she had an elevated white count yesterday and this is normalized on antibiotics we discussed the pros and cons of CT and her abdomen and the patient really wanted so I ordered it and then she changed her mind and decided to give it 24 hours which I think is the most reasonable thing to do. 08/05/19 18:44 Patient received some Toradol her headache is at least 50% better. She would like to go home at this point. She's able to verbalize instructions as far as returning in 24 hours if her abdominal pain does significantly improve. Departure - Departure Time of Disposition: 18:45 Disposition: Home, Self-Care 01 Clinical Impression: Migraine, Abdominal pain - Discharge Information Referrals: Cara Leiva [Primary Care Provider] - Forms: ED Department Discharge Additional Instructions: Return to emergency room with any questions problems worsening symptoms. Return in 24 hours if the abdominal pain does not get significantly better. Go home and get some sleep this is the best treatment for your headache - My Orders Last 24 Hours: My Active Orders 08/05/19 15:06 Influenza Vaccine Charge [RC] .DISCHARGE 08/05/19 17:46 Sodium Chloride 0.9% [Saline Flush] 10 ml FLUSH ONETIME PRN - Assessment/Plan Last 24 Hours: My Active Orders 08/05/19 15:06 Influenza Vaccine Charge [RC] .DISCHARGE 08/05/19 17:46 Sodium Chloride 0.9% [Saline Flush] 10 ml FLUSH ONETIME PRN
[2019-08-05] MEDS ORDERED: diphenhydrAMINE 50 MG/ML SDV IVPUSH ONE (15:48)
[2019-08-05] MEDS ORDERED: Ondansetron 4 MG/2 ML SDV IVPUSH ONE (15:48)
[2019-08-05] MEDS ORDERED: Lactated Ringers 1,000 ML IV ONE (15:48)
[2019-08-05] MEDS ORDERED: Iopamidol 612 MG/ML 100 ML Bottle IVPUSH ONE (17:46)
[2019-08-05] MEDS ORDERED: Sodium Chloride 0.9% 10 ML Syringe FLUSH PRN (17:46)
[2019-08-05] MEDS ORDERED: Diatrizoate Meglumine/Diatrizoate Sodium 37% 120 ML Bottle PO ONE (17:46)
[2019-08-05] MEDS ORDERED: Ketorolac 30 MG/ML SDV IVPUSH ONE (17:50)
== END 2019-08-05 19:00 | disposition home or self-care (01) ==
LOC: JD.ED 14:44
DX: G43.909 Migraine, unspecified, not intractable, without status migrainosus (principal); R10.31 Right lower quadrant pain; I25.10 Atherosclerotic heart disease of native coronary artery without angina pectoris; E78.00 Pure hypercholesterolemia, unspecified; I10 Essential (primary) hypertension; I25.2 Old myocardial infarction; F41.9 Anxiety disorder, unspecified; F17.210 Nicotine dependence, cigarettes, uncomplicated; E66.9 Obesity, unspecified; Z68.30 Body mass index [BMI] 30.0-30.9, adult; Z23 Encounter for immunization; Z88.8 Allergy status to other drugs, medicaments and biological substances; Z88.6 Allergy status to analgesic agent; Z88.4 Allergy status to anesthetic agent; Z91.030 Bee allergy status; Z86.73 Personal history of transient ischemic attack (TIA), and cerebral infarction without residual deficits; Z79.899 Other long term (current) drug therapy
CPT/HCPCS: 36415; 80053; 81001; 85007; 85027; 90471; 90686; 96361; 96374; 96375; 99284; J1200; J1885; J2405; J7120; Q9963; G0008

== ENCOUNTER 2019-09-26 07:55 | Day surgery (SDC) | payer OTHER ==
[~2019-09-26 07:55] MED LIST: Albuterol 0.083% 2.5 MG/3 ML Neb Soln NEB SCH; Lactated Ringers 1,000 ML IV SCH; Lidocaine 1%/Sod Bicarbonate in NS 8.4% 1 ML Syringe IDERM PRN; Sodium Chloride 0.9% 10 ML Syringe FLUSH PRN
[2019-09-26] MEDS ORDERED: Lidocaine 1% with EPINEPHrine 1:100,000 20 ML MDV ONE (09:02)
[2019-09-26] MEDS ORDERED: Bupivacaine 0.5% 30 ML SDV ONE (09:03)
[2019-09-26] MEDS ORDERED: Sodium Chloride 0.9% 10 ML ONE (09:05)
[2019-09-26] MEDS ORDERED: Midazolam 1 MG/ML 2 ML SDV ONE ×2 (09:19→14:20)
[2019-09-26] MEDS ORDERED: HYDROmorphone 0.5 MG/0.5 ML Syringe ONE ×2 (09:19→11:23)
[2019-09-26] MEDS ORDERED: Rocuronium 100 MG/10 ML MDV ONE (09:19)
[2019-09-26] MEDS ORDERED: Ondansetron 4 MG/2 ML SDV ONE (09:19)
[2019-09-26] MEDS ORDERED: Lidocaine 1% 6 ML ONE (09:19)
[2019-09-26] MEDS ORDERED: Ketorolac 30 MG/ML SDV ONE (09:19)
[2019-09-26] MEDS ORDERED: Propofol 200 MG/20 ML SDV ONE (09:19)
[2019-09-26] MEDS ORDERED: ceFAZolin 1 GM Vial ONE (09:19)
[2019-09-26] MEDS ORDERED: Lactated Ringers 1,000 ML ONE ×2 (09:19→12:18)
[2019-09-26] MEDS ORDERED: Dexamethasone 4 MG/ML 5 ML MDV ONE (09:19)
[2019-09-26] MEDS ORDERED: fentaNYL 250 MCG/5 ML SDV ONE ×2 (09:20→11:23)
--- NOTE | 2019-09-26 09:38 | PCM.PREANE ---
Preanesthetic Assessment - Anesthesia/Transfusion/Family Hx Anesthesia History: Prior Anesthesia Without Reaction Family History of Anesthesia Reaction: No Transfusion History: No Prior Transfusion(s) Intubation History: Unknown - Review of Systems General: No Symptoms (History of Chronic pain syndrome, Rheumatoid arthritis) Pulmonary: No Symptoms (History of Asthma (COPD) Smoker:1 PPD times 35 years), Cough Cardiovascular: No Symptoms (History of HTN), Dyspnea on Exertion, Lightheadedness (on occasion) Gastrointestinal: No Symptoms (GERD/history of hiatal hernia), Nausea ( currently naseated due to nerves) Neurological: No Symptoms (History of cerebral aneurysm-residual left sided weakness(12/2014)/History of back pain (01/22) currently/history of vertigo), Headache, Seizure (last seizure 2014) Other: Reports: None (History of CKD ( BUN elevated= 26)), Sinus Problem ( chronic rhinits/PND- cough), Anxiety - Physical Assessment NPO Status Date: 09/25/19 NPO Status Time: 20:00 Vital Signs: Last Vital Signs Temp 36.4 C 09/26/19 08:25 Pulse 64 09/26/19 08:25 Resp 16 09/26/19 08:25 BP 126/67 09/26/19 08:25 Pulse Ox 97 09/26/19 08:25 Height: 1.8 m Weight: 95.254 kg ASA Class: 3 Mental Status: Alert & Oriented x3 Airway Class: Mallampati = 2 Dentition: Reports: Dentures, Missing Tooth/Teeth (loose bottom teeth front noted.) Thyro-Mental Finger Breadths: 3 Mouth Opening Finger Breadths: 3 ROM/Head Extension: Full Lungs: Clear to Auscultation, Normal Respiratory Effort, Decreased Breath Sounds Cardiovascular: Regular Rate, Regular Rhythm, No Murmurs, Murmurs (history of murmur) - Lab Values: Laboratory Last Values Urine Color Yellow (Yellow) 09/26/19 08:20 Urine Appearance Clear (Clear) 09/26/19 08:20 Urine pH 6.0 (5.0-8.0) 09/26/19 08:20 Ur Specific [place] > or = 1.030 (1.005-1.030) 09/26/19 08:20 Urine Protein Negative (Negative) 09/26/19 08:20 Urine Glucose (UA) Negative (Negative) 09/26/19 08:20 Urine Ketones Negative (Negative) 09/26/19 08:20 Urine Occult Blood Negative (Negative) 09/26/19 08:20 Urine Nitrite Negative (Negative) 09/26/19 08:20 Urine Bilirubin Negative (Negative) 09/26/19 08:20 Urine Urobilinogen 0.2 (0.2-1.0) 09/26/19 08:20 Ur Leukocyte Esterase Negative (Negative) 09/26/19 08:20 Urine RBC 0-5 /hpf (0-5) 09/26/19 08:20 Urine WBC 0-5 /hpf (0-5) 09/26/19 08:20 Ur Squamous Epith Cells 0-5 /hpf (0-5) 09/26/19 08:20 Urine Bacteria Few /hpf (FEW) 09/26/19 08:20 Urine Mucus Few /hpf (FEW) 09/26/19 08:20 Urine HCG, Qual Negative (NEGATIVE) 09/26/19 08:20 All labs reviewed and noted and within acceptable ranges to proceed with scheduled procedure. - Imaging/EKG Impressions: Echocardiogram: 09/08/2019 EF=70-75% Otherwise unremarkable 09/08/2019 Nuclear Stress Test: ? anterolateral wall ischemia that as400 programmer analyst considered artifact. (No evidence of anterolateral wall ischemia) CXR: unremarkable\ EKG: NSR rate= 67, incomplete RBBB, Probable inferior MT, no changes noted from prior EKG - Allergies Allergies/Adverse Reactions: Allergies Allergy/AdvReac Type Severity Reaction Status Date / Time bee venom protein (honey bee) Allergy Cannot Verified 08/05/19 15:00 Remember indomethacin [From Indocin] Allergy Anaphylactic Verified 08/05/19 15:00 Shock kiwi Allergy Cannot Verified 09/25/19 15:00 Remember lidocaine Allergy Edema Verified 08/05/19 15:00 procaine Allergy Swelling Verified 09/25/19 15:00 sumatriptan [From Imitrex] Allergy Cannot Verified 08/05/19 15:00 Remember levetiracetam [From Keppra] AdvReac Vomiting Verified 08/05/19 15:00 - Anesthesia Plan Pre-Op Medication Ordered: Beta Shavon Beta Shavon: Atenolol Med Last Dose Date: 09/26/19 Med Last Dose Time: 06:30 - Acknowledgements Anesthesia Type Planned: General Anesthesia Pt an Appropriate Candidate for the Planned Anesthesia: Yes Alternatives and Risks of Anesthesia Discussed w Pt/Guardian: Yes Pt/Guardian Understands and Agrees with Anesthesia Plan: Yes PreAnesthesia Questionnaire HEENT History: Reports: Impaired Vision Other HEENT History: wears eyeglasses. Polyps in nose. Cardiovascular History: Reports: CAD, High Cholesterol, Hypertension, MT Other Cardiovascular History: hypokalemia Respiratory History: Reports: Asthma Gastrointestinal History: Reports: Diverticulosis, GERD, Hiatal Hernia Genitourinary History: Reports: Urinary Incontinence TRANSITIONAL CARE NURSE History: Reports: Endometrial Ablation, Endometriosis, Musculoskeletal History: Reports: Back Pain, Chronic, Osteoarthritis, RA Neurological History: Reports: Cerebral Aneurysms, CVA, Headaches, Chronic, Seizure Other Neuro History: right cva Psychiatric History: Reports: Anxiety, Depression Other Psychiatric History: cigarettes Endocrine/Metabolic History: Reports: Obesity/BMI 30+ Hematologic History: Reports: Anemia Other Hematologic History: in Immunologic History: Reports: None Oncologic (Cancer) History: Reports: None Dermatologic History: Reports: None - Infectious Disease History Infectious Disease History: Reports: Chicken Pox - Past Surgical History Head Surgeries/Procedures: Reports: None, Other (See Below) HEENT Surgical History: Reports: Adenoidectomy, Naso-Sinus Surgery, Tonsillectomy Other HEENT Surgeries/Procedures: Polyps in the sinuses removed once, but they grew back. Cardiovascular Surgical History: Reports: Aneurysm Other Cardiovascular Surgeries/Procedures: brain Respiratory Surgical History: Reports: None GI Surgical History: Reports: EGD Female Surgical History: Reports: Section, D&C, Endometrial Ablation Other Neurological Surgeries/Procedures: Coiled the brain anuerysms. Musculoskeletal Surgical History: Reports: None Oncologic Surgical History: Reports: Biopsy of Breast - SUBSTANCE USE Smoking Status *Q: Current Every Day Smoker Recreational Drug Use History: No - HOME MEDS Home Medications: Home Meds Atenolol 100 mg PO DAILY 02/02/18 [History] hydroCHLOROthiazide [Hydrochlorothiazide] 25 mg PO DAILY 02/02/18 [History] lamoTRIgine [Lamotrigine] 300 mg PO BID 02/02/18 [History] Acyclovir [Zovirax] 800 mg PO TID PRN 12/13/18 [History] Carisoprodol [Soma] 350 mg PO TID PRN 12/13/18 [History] Hydrocodone/Acetaminophen [Hydrocodon-Acetaminophn 10-325] 1 tab PO Q6H PRN 11/02 [History] Ondansetron [Zofran ODT] 4 mg PO Q6H PRN #20 tab.dis 12/13/18 [Rx] Potassium Chloride [Klor-Con M20] 20 meq PO BID 12/13/18 [History] ALPRAZolam [Xanax] 2 mg PO BID PRN 06/06/19 [History] Famotidine [Pepcid] 20 mg PO BID PRN 09/25/19 [History] Pravastatin Sodium [Pravachol] 20 mg PO DAILY 09/25/19 [History] - CURRENT (IN HOUSE) MEDS Current Meds: Current Medications Albuterol (Proventil Neb Soln) 2.5 mg NEB ONETIME BROOKE Stop: 09/26/19 16:00 Lactated Ringer's (Ringers, Lactated) 1,000 mls @ 125 mls/hr IV ASDIRECTED BROOKE Stop: 09/26/19 23:00 Last Admin: 09/26/19 08:40 Dose: 125 mls/hr Lidocaine/Sodium Bicarbonate (Buffered Lidocaine 1% In Ns 8.4%) 0.25 ml IDERM ONETIME PRN PRN Reason: Prior to IV Start Stop: 09/26/19 18:00 Sodium Chloride (Saline Flush) 10 ml FLUSH ASDIRECTED PRN PRN Reason: Keep Vein Open Stop: 09/26/19 18:00 Discontinued Medications Bupivacaine HCl (Marcaine 0.5%) Confirm Administered Dose 30 ml .ROUTE .STK-MED ONE Stop: 09/26/19 09:04 Cefazolin Sodium (Ancef) Confirm Administered Dose 2 gm .ROUTE .STK-MED ONE Stop: 09/26/19 09:20 Dexamethasone (Dexamethasone) Confirm Administered Dose 20 mg .ROUTE .STK-MED ONE Stop: 09/26/19 09:20 Fentanyl (Sublimaze) Confirm Administered Dose 250 mcg .ROUTE .STK-MED ONE Stop: 09/26/19 09:21 Hydromorphone HCl (Dilaudid) Confirm Administered Dose 0.5 mg .ROUTE .STK-MED ONE Stop: 09/26/19 09:20 Lactated Ringer's (Ringers, Lactated) 1,000 mls @ 125 mls/hr IV ASDIRECTED BROOKE Sodium Chloride (Normal Saline) Confirm Administered Dose 20 mls @ as directed .ROUTE .STK-MED ONE Stop: 09/26/19 09:06 Lidocaine HCl (Xylocaine-Mpf 1%) Confirm Administered Dose 6 mls @ as directed .ROUTE .STK-MED ONE Stop: 09/26/19 09:20 Lactated Ringer's (Ringers, Lactated) Confirm Administered Dose 1,000 mls @ as directed .ROUTE .STK-MED ONE Stop: 09/26/19 09:20 Ketorolac Tromethamine (Toradol) Confirm Administered Dose 30 mg .ROUTE .STK- MED ONE Stop: 09/26/19 09:20 Lidocaine/Epinephrine (Xylocaine 1% With Epinephrine 1:100,000) Confirm Administered Dose 20 ml .ROUTE .ST-MED ONE Stop: 09/26/19 09:03 Lidocaine/Sodium Bicarbonate (Buffered Lidocaine 1% In Ns 8.4%) 0.25 ml IDERM ONETIME PRN PRN Reason: Prior to IV Start Midazolam HCl (Versed 1 Mg/Ml) Confirm Administered Dose 2 mg .ROUTE .STK-MED ONE Stop: 09/26/19 09:20 Ondansetron HCl (Zofran) Confirm Administered Dose 4 mg .ROUTE .STK-MED ONE Stop: 09/26/19 09:20 Propofol (Diprivan 20 Ml) Confirm Administered Dose 200 mg .ROUTE .STK-MED ONE Stop: 09/26/19 09:20 Rocuronium Marsing (Zemuron) Confirm Administered Dose 100 mg .ROUTE .STK-MED ONE Stop: 09/26/19 09:20 Sodium Chloride (Saline Flush) 10 ml FLUSH ASDIRECTED PRN PRN Reason: Keep Vein Open
[2019-09-26] MEDS ORDERED: Sodium Chloride 0.9% 50 ML SDV ONE (10:58)
[2019-09-26] MEDS ORDERED: Promethazine 12.5 MG in Sodium Chloride 0.9% 50 ML IV PRN (13:04)
--- NOTE | 2019-09-26 13:06 | PCM.POSTAN ---
POST ANESTHESIA ASSESSMENT - MENTAL STATUS Mental Status: Alert, Oriented - VITAL SIGNS Vital Signs: Last Vital Signs Temp 36.4 C 09/26/19 08:25 Pulse 64 09/26/19 08:25 Resp 16 09/26/19 08:25 BP 126/67 09/26/19 08:25 Pulse Ox 97 09/26/19 09:35 - RESPIRATORY Respiratory Status: Respiratory Rate WNL, Airway Patent, O2 Saturation Stable, Supplemental Oxygen - CARDIOVASCULAR CV Status: Pulse Rate WNL, Blood Pressure Stable - GASTROINTESTINAL GI Status: No Symptoms - PAIN Pain Score: 2 - POST OP HYDRATION Hydration Status: Adequate & Stable - OBSERVATIONS Free Text/Narrative:: no anesthesia complications noted
[2019-09-26] MEDS: HYDROmorphone 0.5 MG/0.5 ML Syringe IVPUSH PRN ×2 (13:33→14:05)
--- NOTE | 2019-09-26 13:38 | PCM.OPNOTE ---
- General Post-Op/Procedure Note Date of Surgery/Procedure: 09/26/19 Operative Procedure(s): Laparoscopic-assisted vaginal hysterectomy, bilateral salpingectomy, right oophorectomy, transvaginal tape mid urethral sling and cystoscopy Findings: Grossly normal-appearing uterus, bilateral fallopian tubes and bilateral ovaries. Small amount of adhesions from the lower descending colon to the lateral abdominal wall, these were taken down using Enseal vessel sealing device. Grossly normal-appearing cervix and vaginal tissue. Grossly normal- appearing visualized portions of the intestines. Unable to visualize the appendix due to small bowel adhesions overlying the cecum. Pre Op Diagnosis: Postmenopausal bleeding, history of endometrial ablation, female pelvic pain and stress urinary incontinence Post-Op Diagnosis: Same Anesthesia Technique: General ET Tube Primary Surgeon: Leonel Soria Anesthesia Provider: Aleksey Villalpando Rn Orthopedic: Danny Christine Rn Orthopedic: Delaney Bell ([place] student) Reason Rn Orthopedic Was Necessary: Patient safety and reduction of morbidity and mortality Role of Rn Orthopedic: Use of laparoscopic instruments during the case for the laparoscopic portion of the surgery. Retraction for visualization. Fluid Replacement, Intraop: 2,000 Output, Urine Amount: 125 EBL in mLs: 100 Complications: None Condition: Good Free Text/Narrative:: The patient was seen in the preoperative holding area and risks, benefits, indications, and alternatives of the procedure were reviewed with the patient and she desired to proceed with a laparoscopic assisted vaginal hysterectomy, bilateral salpingectomy, right oophorectomy, possible bilateral salpingo- oophorectomy, transvaginal mid-urethral sling, possible anterior and posterior repair and possible total abdominal hysterectomy. Consents were reviewed. The patient was taken back to the OR and given general anesthesia with an endotracheal tube which was placed without difficulty. She was placed in dorsal lithotomy position using Yellofin stirrups. She was prepped and draped in normal sterile fashion. A Villegas catheter was placed without difficulty. Attention was then turned to her umbilicus and a 5 mm stab incision was made with a scalpel and a Veress needle was then inserted through the incision. The gas was turned on, with an opening pressure of 6 mmHg. Pneumoperitoneum was continued until 15 mmHg pressure. A 5 mm trocar was then inserted under direct visualization through the incision without difficulty. Attention was then turned to the patient's right lower quadrant where an avascular space approximately assisted between the ASIS and the umbilicus was identified. A 5 mm incision was made with a scalpel. A 5 mm trocar was then inserted under direct visualization of the laparoscope. Attention was then turned to the left lower quadrant, where again an avascular portion of the abdominal wall was identified approximately assisted between the ASIS and the umbilicus. A scalpel was used to make a 5 mm incision. A 5 mm trocar was inserted under direct visualization with the laparoscope. Attention was then turned to the pelvis where the uterus was visualized and noted be normal in appearance with normal appearing bilateral fallopian tubes and normal-appearing bilateral ovaries. The atraumatic grasper was then removed from the right lower trocar and a Enseal vessel sealing device was introduced and used to take down the adhesions from the descending colon to the lateral abdominal sidewall without difficulty. The Enseal device was then used to transect the infundibulopelvic ligament. The mesosalpinx connecting the right fallopian tube and ovary was transected from the underlying tissue to the level of the right round ligament. The right round ligament and right side of the uterus and broad ligament were then transected using the Enseal vessel sealing device until the level of the uterovesical peritoneal reflection. A bladder flap was created by dissecting the overlying peritoneal tissue from the lower uterine segment and pushed away using the Enseal vessel sealing device. This was repeated on the patient's left side. The fallopian tube was transected from the mesosalpinx using the Enseal vessel sealing device. The utero-ovarian ligament was then transected using Enseal vessel sealing device. The left round ligament was transected using Enseal vessel sealing device and the broad ligament was transected to the level of the uterovesical peritoneal reflection. The pelvis was then inspected for hemostasis at this time and hemostasis was noted. All instruments were removed from the abdomen. Attention was then turned to the patient's perineum where a weighted speculum was placed into the vagina and a Dickson retractor was used to visualize the cervix. The cervix was grasped with a double-tooth tenaculum. The cervical reflection point was then injected circumferentially with sterile saline for hydrodissection. The cervix was then circumferentially incised with a scalpel. The bladder was then dissected off the pubovesical cervical fascia anteriorly with Metzenbaum scissors. The same procedure was performed posteriorly and the posterior cul-de-sac was entered sharply without difficulty using Metzenbaum scissors. At this point, an Enseal vessel sealing device was placed over the uterosacral ligaments on the patient's left side. These were cauterized and ligated with the device. This was repeated on the patient's right side. Hemostasis was assured. The cardinal ligaments were then clamped on both sides using the Enseal vessel sealing device, cauterized and transected with the device. At this time a Metzenbaum scissors was able to be used to enter the anterior cul-de-sac without difficulty with sharp dissection. The uterine artery on the patient's left side and the remainder of the broad ligament were then serially clamped with the Enseal vessel sealing device, cauterized and transected with the device. This was repeated on the right side with clamping of the right uterine artery and the remainder of the broad ligament were serially clamped, cauterized and transected using the Enseal vessel sealing device. Excellent hemostasis was noted. The cervix and uterus was able to be delivered at this time. The posterior vaginal cuff was closed with running locked sutures of 0 Monocryl. The vaginal cuff was then closed in a horizontal fashion using running locked sutures with 0 Monocryl suture. After the uterus was removed and exam was performed and there was noted to be very minimal cystocele or rectocele and decision was made to not perform anterior or posterior repair. All instruments were removed from the vagina. Attention was then turned to the abdomen where a laparoscope was inserted and was used to check for hemostasis. Hemostasis was noted at this time. The gas was then evacuated from the peritoneum and trocars removed. These were closed using 4-0 Monocryl suture and Dermabond. An Allis clamp was placed approximately 2 cm below the urethral opening. A second Allis clamp was placed 2 cm below the first Allis clamp. The vaginal mucosa was then injected with sterile saline. A scalpel was used to make a midline incision through the vaginal mucosa. Woodward scissors were used to dissect the vaginal mucosa from the underlying tissue on the patient's right side. This was carried out to the pubic rami. This was repeated on the left side and completed without difficulty. Attention was then turned to the patient 's mons and a stab incision was made with a scalpel on the bilateral sides without complications. The urethral sling hook was then used on the patient's left side and placed through the stab incision and with a finger in the vagina behind the pubic rami, the tip of the hook was felt and then directed out through the midline vaginal incision. The transvaginal tape was attached to the hook and pulled through the incision. Attention was then turned to the patient's right side where, again, the urethral sling hook was placed through the stab incision and with a finger in the vagina was directed posterior to the lateral pubic rami and directed through the vaginal incision. The other end of the tape was attached to the hook and pulled through, making sure that the tape was flat under the patient's urethra. The bladder was then filled with 240 mL of sterile saline through the previously inserted urethral catheter. The urethral catheter was removed at this time. A simple cystoscopy was performed and evaluation of the bilateral bladder flores did not show any evidence of injury. There was bilateral ureteral jetting noted with cystoscopy. The cystoscopy portion of the procedure was completed at this time. A Woodward scissors was used between the urethral sling and urethra to allow for a tension- free placement of the tape. The ends of the tape were then cut at the level of the skin on the patient on both sides at the stab incisions. Attention was then turned to the midline incision, which was closed using 3-0 Monocryl in a running fashion. The skin incisions were closed using Dermabond glue. The patient was awoken from general anesthesia and taken to the PACU for recovery in stable condition. She will be discharged to home once she is able to meet all postoperative milestones including tolerating small amount of oral intake and liquids, ambulate without difficulty, her pain controlled with oral medications and able to void without difficulty. She will follow-up in the clinic in 2 weeks or earlier as needed. Sponge, lap, needle, and instrument counts were correct x 2. Review of images IMG 001: Right fallopian tube and ovary grossly normal in appearance. Right fallopian tube with paratubal cyst noted IMG 002: Left fallopian tube and ovary normal in appearance with visualized portion of the uterine fundus normal in appearance. IMG 003: Posterior cul-de-sac grossly normal in appearance IMG 004: Anterior cul-de-sac with no gross abnormalities IMG 005: Visualization of upper abdomen without any abnormalities IMG 006: Right lower quadrant with adhesions of the small intestine over the cecum and unable to visualize the appendix IMG 007: Left lower quadrant adhesions from the descending colon to the lateral abdominal sidewall being taken down with Enseal device IMG 008: Left pelvic sidewall status post hysterectomy with hemostasis noted. Left ovary visualized at the 7 o'clock position grossly normal in appearance IMG 009: Right pelvic sidewall status post hysterectomy with hemostasis noted IMG 010: Mid pelvis and vaginal cuff grossly normal in appearance with hemostasis noted status post hysterectomy IMG 011: Right lower quadrant trocar site after removal of trocar with hemostasis noted IMG 012: Attempted visualization of left lower quadrant trocar site after removal trocar.
[2019-09-26] MEDS: fentaNYL 100 MCG/2 ML SDV IVPUSH PRN ×3 (13:40→14:14)
[2019-09-26] MEDS ORDERED: Midazolam 1 MG/ML 2 ML SDV IVPUSH PRN (14:17)
[2019-09-26] MEDS ORDERED: Midazolam 1 MG/ML 2 ML SDV IVPUSH ONE (14:18)
[2019-09-26] MEDS: Acetaminophen/HYDROcodone 325-10 MG Tab PO PRN ×2 (14:30→20:35)
[2019-09-26] MEDS ORDERED: ALPRAZolam 1 MG Tab PO PRN ×2 (14:59→17:47)
--- NOTE | 2019-09-26 15:00 | PCM48HPAN ---
Post Anesthesia Note - EVALUATION WITHIN 48HRS OF ANESTHETIC Vital Signs in Normal Range: Yes Patient Participated in Evaluation: Yes Respiratory Function Stable: Yes Airway Patent: Yes Cardiovascular Function Stable: Yes Hydration Status Stable: Yes Pain Control Satisfactory: Yes Nausea and Vomiting Control Satisfactory: Yes Mental Status Recovered: Yes Vital Signs: Last Vital Signs Temp 36.6 C 09/26/19 14:45 Pulse 65 09/26/19 14:45 Resp 15 09/26/19 14:45 BP 99/56 L 09/26/19 14:45 Pulse Ox 98 09/26/19 14:45
[2019-09-26] MEDS ORDERED: ALPRAZOLAM 2 MG PO PRN (16:39)
[2019-09-26] MEDS ORDERED: Ondansetron 4 MG Tab.DIS PO PRN (17:01)
[2019-09-26] MEDS ORDERED: Famotidine 20 MG Tab PO PRN (17:23)
[2019-09-26] MEDS ORDERED: Acetaminophen/HYDROcodone 325-10 MG Tab PO PRN (17:52)
[2019-09-26] MEDS: Potassium Chloride 20 MEQ Tab.ER PO SCH (20:36)
[2019-09-26] MEDS: lamoTRIgine 100 MG Tab PO SCH (20:37)
[2019-09-26] MEDS: CARISOPRODOL 350 MG PO PRN (20:39)
[2019-09-26] MEDS ORDERED: Nicotine 21 MG/24 Hr Patch TRDERM SCH (21:00)
[2019-09-27] MEDS: Acetaminophen/HYDROcodone 325-10 MG Tab PO PRN ×2 (02:35→08:29)
[2019-09-27] MEDS: CARISOPRODOL 350 MG PO PRN (05:28)
[2019-09-27] MEDS: lamoTRIgine 100 MG Tab PO SCH (08:27)
[2019-09-27] MEDS: Potassium Chloride 20 MEQ Tab.ER PO SCH (08:28)
[2019-09-27] MEDS ORDERED: Hydrochlorothiazide 25 MG Tab PO SCH (09:00)
[2019-09-27] MEDS ORDERED: Atenolol 50 MG Tab PO SCH (09:00)
--- NOTE | 2019-09-27 09:28 | PCM.SN ---
- Free Text/Narrative Note: Post Op Note Subjective: Patient reports feeling well overall. Pain minimal and controlled with oral medications. Reports having difficulty sleeping with some of the pain that she was having. Tolerating regular diet. Reports passing flatus. Voiding without difficulty. Ambulating without difficulty but using a front wheel walker to help steady her gait. Objective: Vitals Vital Signs - 8 hr 09/27/19 08:28 Pulse, 72 Peripheral Blood Pressure 134/93 H Gen: No acute distress, alert and oriented Lungs: Clear to auscultation bilaterally Heart: Regular rate and rhythm Abdomen: Soft, minimal appropriate tenderness, nondistended, bowel sounds positive Incisions: Healing well, no bleeding or discharge, no erythema present, skin glue covering incisions, small amount of ecchymosis noted in the right lower quadrant and right mons incision Pelvic: Minimal bleeding present on christofer-pad Assesment/Plan: 54-year-old with postmenopausal bleeding and history of endometrial ablation and stress urinary incontinence status post laparoscopic-assisted vaginal hysterectomy, bilateral salpingectomy, right oophorectomy and transvaginal tape mid urethral sling POD #1 Doing well No concerns at this time Routine post op care Monitor vitals Discharge home today Leonel Soria MD 9:27 AM 09/27/2019
--- NOTE | 2019-09-27 09:32 | PCM.DCSUM1 ---
Discharge Summary - Hospital Course Free Text/Narrative:: The patient was seen in the preoperative holding area and risks, benefits, indications, and alternatives of the procedure were reviewed with the patient and she desired to proceed with a laparoscopic assisted vaginal hysterectomy, bilateral salpingectomy, right oophorectomy, possible bilateral salpingo- oophorectomy, transvaginal mid-urethral sling, possible anterior and posterior repair and possible total abdominal hysterectomy. Consents were reviewed. The patient was taken back to the OR and given general anesthesia with an endotracheal tube which was placed without difficulty. She was placed in dorsal lithotomy position using Yellofin stirrups. She was prepped and draped in normal sterile fashion. A Villegas catheter was placed without difficulty. Attention was then turned to her umbilicus and a 5 mm stab incision was made with a scalpel and a Veress needle was then inserted through the incision. The gas was turned on, with an opening pressure of 6 mmHg. Pneumoperitoneum was continued until 15 mmHg pressure. A 5 mm trocar was then inserted under direct visualization through the incision without difficulty. Attention was then turned to the patient's right lower quadrant where an avascular space approximately long-term between the ASIS and the umbilicus was identified. A 5 mm incision was made with a scalpel. A 5 mm trocar was then inserted under direct visualization of the laparoscope. Attention was then turned to the left lower quadrant, where again an avascular portion of the abdominal wall was identified approximately long-term between the ASIS and the umbilicus. A scalpel was used to make a 5 mm incision. A 5 mm trocar was inserted under direct visualization with the laparoscope. Attention was then turned to the pelvis where the uterus was visualized and noted be normal in appearance with normal appearing bilateral fallopian tubes and normal-appearing bilateral ovaries. The atraumatic grasper was then removed from the right lower trocar and a Enseal vessel sealing device was introduced and used to take down the adhesions from the descending colon to the lateral abdominal sidewall without difficulty. The Enseal device was then used to transect the infundibulopelvic ligament. The mesosalpinx connecting the right fallopian tube and ovary was transected from the underlying tissue to the level of the right round ligament. The right round ligament and right side of the uterus and broad ligament were then transected using the Enseal vessel sealing device until the level of the uterovesical peritoneal reflection. A bladder flap was created by dissecting the overlying peritoneal tissue from the lower uterine segment and pushed away using the Enseal vessel sealing device. This was repeated on the patient's left side. The fallopian tube was transected from the mesosalpinx using the Enseal vessel sealing device. The utero-ovarian ligament was then transected using Enseal vessel sealing device. The left round ligament was transected using Enseal vessel sealing device and the broad ligament was transected to the level of the uterovesical peritoneal reflection. The pelvis was then inspected for hemostasis at this time and hemostasis was noted. All instruments were removed from the abdomen. Attention was then turned to the patient's perineum where a weighted speculum was placed into the vagina and a Dickson retractor was used to visualize the cervix. The cervix was grasped with a double-tooth tenaculum. The cervical reflection point was then injected circumferentially with sterile saline for hydrodissection. The cervix was then circumferentially incised with a scalpel. The bladder was then dissected off the pubovesical cervical fascia anteriorly with Metzenbaum scissors. The same procedure was performed posteriorly and the posterior cul-de-sac was entered sharply without difficulty using Metzenbaum scissors. At this point, an Enseal vessel sealing device was placed over the uterosacral ligaments on the patient's left side. These were cauterized and ligated with the device. This was repeated on the patient's right side. Hemostasis was assured. The cardinal ligaments were then clamped on both sides using the Enseal vessel sealing device, cauterized and transected with the device. At this time a Metzenbaum scissors was able to be used to enter the anterior cul-de-sac without difficulty with sharp dissection. The uterine artery on the patient's left side and the remainder of the broad ligament were then serially clamped with the Enseal vessel sealing device, cauterized and transected with the device. This was repeated on the right side with clamping of the right uterine artery and the remainder of the broad ligament were serially clamped, cauterized and transected using the Enseal vessel sealing device. Excellent hemostasis was noted. The cervix and uterus was able to be delivered at this time. The posterior vaginal cuff was closed with running locked sutures of 0 Monocryl. The vaginal cuff was then closed in a horizontal fashion using running locked sutures with 0 Monocryl suture. After the uterus was removed and exam was performed and there was noted to be very minimal cystocele or rectocele and decision was made to not perform anterior or posterior repair. All instruments were removed from the vagina. Attention was then turned to the abdomen where a laparoscope was inserted and was used to check for hemostasis. Hemostasis was noted at this time. The gas was then evacuated from the peritoneum and trocars removed. These were closed using 4-0 Monocryl suture and Dermabond. An Allis clamp was placed approximately 2 cm below the urethral opening. A second Allis clamp was placed 2 cm below the first Allis clamp. The vaginal mucosa was then injected with sterile saline. A scalpel was used to make a midline incision through the vaginal mucosa. Woodward scissors were used to dissect the vaginal mucosa from the underlying tissue on the patient's right side. This was carried out to the pubic rami. This was repeated on the left side and completed without difficulty. Attention was then turned to the patient 's mons and a stab incision was made with a scalpel on the bilateral sides without complications. The urethral sling hook was then used on the patient's left side and placed through the stab incision and with a finger in the vagina behind the pubic rami, the tip of the hook was felt and then directed out through the midline vaginal incision. The transvaginal tape was attached to the hook and pulled through the incision. Attention was then turned to the patient's right side where, again, the urethral sling hook was placed through the stab incision and with a finger in the vagina was directed posterior to the lateral pubic rami and directed through the vaginal incision. The other end of the tape was attached to the hook and pulled through, making sure that the tape was flat under the patient's urethra. The bladder was then filled with 240 mL of sterile saline through the previously inserted urethral catheter. The urethral catheter was removed at this time. A simple cystoscopy was performed and evaluation of the bilateral bladder flores did not show any evidence of injury. There was bilateral ureteral jetting noted with cystoscopy. The cystoscopy portion of the procedure was completed at this time. A Woodward scissors was used between the urethral sling and urethra to allow for a tension- free placement of the tape. The ends of the tape were then cut at the level of the skin on the patient on both sides at the stab incisions. Attention was then turned to the midline incision, which was closed using 3-0 Monocryl in a running fashion. The skin incisions were closed using Dermabond glue. The patient was awoken from general anesthesia and taken to the PACU for recovery in stable condition. She will be discharged to home once she is able to meet all postoperative milestones including tolerating small amount of oral intake and liquids, ambulate without difficulty, her pain controlled with oral medications and able to void without difficulty. She will follow-up in the clinic in 2 weeks or earlier as needed. Sponge, lap, needle, and instrument counts were correct x 2. HPI Initial Comments: The patient was seen in the preoperative holding area and risks, benefits, indications, and alternatives of the procedure were reviewed with the patient and she desired to proceed with a laparoscopic assisted vaginal hysterectomy, bilateral salpingectomy, right oophorectomy, possible bilateral salpingo- oophorectomy, transvaginal mid-urethral sling, possible anterior and posterior repair and possible total abdominal hysterectomy. Consents were reviewed. The patient was taken back to the OR and given general anesthesia with an endotracheal tube which was placed without difficulty. She was placed in dorsal lithotomy position using Yellofin stirrups. She was prepped and draped in normal sterile fashion. A Villegas catheter was placed without difficulty. Attention was then turned to her umbilicus and a 5 mm stab incision was made with a scalpel and a Veress needle was then inserted through the incision. The gas was turned on, with an opening pressure of 6 mmHg. Pneumoperitoneum was continued until 15 mmHg pressure. A 5 mm trocar was then inserted under direct visualization through the incision without difficulty. Attention was then turned to the patient's right lower quadrant where an avascular space approximately long-term between the ASIS and the umbilicus was identified. A 5 mm incision was made with a scalpel. A 5 mm trocar was then inserted under direct visualization of the laparoscope. Attention was then turned to the left lower quadrant, where again an avascular portion of the abdominal wall was identified approximately long-term between the ASIS and the umbilicus. A scalpel was used to make a 5 mm incision. A 5 mm trocar was inserted under direct visualization with the laparoscope. Attention was then turned to the pelvis where the uterus was visualized and noted be normal in appearance with normal appearing bilateral fallopian tubes and normal-appearing bilateral ovaries. The atraumatic grasper was then removed from the right lower trocar and a Enseal vessel sealing device was introduced and used to take down the adhesions from the descending colon to the lateral abdominal sidewall without difficulty. The Enseal device was then used to transect the infundibulopelvic ligament. The mesosalpinx connecting the right fallopian tube and ovary was transected from the underlying tissue to the level of the right round ligament. The right round ligament and right side of the uterus and broad ligament were then transected using the Enseal vessel sealing device until the level of the uterovesical peritoneal reflection. A bladder flap was created by dissecting the overlying peritoneal tissue from the lower uterine segment and pushed away using the Enseal vessel sealing device. This was repeated on the patient's left side. The fallopian tube was transected from the mesosalpinx using the Enseal vessel sealing device. The utero-ovarian ligament was then transected using Enseal vessel sealing device. The left round ligament was transected using Enseal vessel sealing device and the broad ligament was transected to the level of the uterovesical peritoneal reflection. The pelvis was then inspected for hemostasis at this time and hemostasis was noted. All instruments were removed from the abdomen. Attention was then turned to the patient's perineum where a weighted speculum was placed into the vagina and a Dickson retractor was used to visualize the cervix. The cervix was grasped with a double-tooth tenaculum. The cervical reflection point was then injected circumferentially with sterile saline for hydrodissection. The cervix was then circumferentially incised with a scalpel. The bladder was then dissected off the pubovesical cervical fascia anteriorly with Metzenbaum scissors. The same procedure was performed posteriorly and the posterior cul-de-sac was entered sharply without difficulty using Metzenbaum scissors. At this point, an Enseal vessel sealing device was placed over the uterosacral ligaments on the patient's left side. These were cauterized and ligated with the device. This was repeated on the patient's right side. Hemostasis was assured. The cardinal ligaments were then clamped on both sides using the Enseal vessel sealing device, cauterized and transected with the device. At this time a Metzenbaum scissors was able to be used to enter the anterior cul-de-sac without difficulty with sharp dissection. The uterine artery on the patient's left side and the remainder of the broad ligament were then serially clamped with the Enseal vessel sealing device, cauterized and transected with the device. This was repeated on the right side with clamping of the right uterine artery and the remainder of the broad ligament were serially clamped, cauterized and transected using the Enseal vessel sealing device. Excellent hemostasis was noted. The cervix and uterus was able to be delivered at this time. The posterior vaginal cuff was closed with running locked sutures of 0 Monocryl. The vaginal cuff was then closed in a horizontal fashion using running locked sutures with 0 Monocryl suture. After the uterus was removed and exam was performed and there was noted to be very minimal cystocele or rectocele and decision was made to not perform anterior or posterior repair. All instruments were removed from the vagina. Attention was then turned to the abdomen where a laparoscope was inserted and was used to check for hemostasis. Hemostasis was noted at this time. The gas was then evacuated from the peritoneum and trocars removed. These were closed using 4-0 Monocryl suture and Dermabond. An Allis clamp was placed approximately 2 cm below the urethral opening. A second Allis clamp was placed 2 cm below the first Allis clamp. The vaginal mucosa was then injected with sterile saline. A scalpel was used to make a midline incision through the vaginal mucosa. Woodward scissors were used to dissect the vaginal mucosa from the underlying tissue on the patient's right side. This was carried out to the pubic rami. This was repeated on the left side and completed without difficulty. Attention was then turned to the patient 's mons and a stab incision was made with a scalpel on the bilateral sides without complications. The urethral sling hook was then used on the patient's left side and placed through the stab incision and with a finger in the vagina behind the pubic rami, the tip of the hook was felt and then directed out through the midline vaginal incision. The transvaginal tape was attached to the hook and pulled through the incision. Attention was then turned to the patient's right side where, again, the urethral sling hook was placed through the stab incision and with a finger in the vagina was directed posterior to the lateral pubic rami and directed through the vaginal incision. The other end of the tape was attached to the hook and pulled through, making sure that the tape was flat under the patient's urethra. The bladder was then filled with 240 mL of sterile saline through the previously inserted urethral catheter. The urethral catheter was removed at this time. A simple cystoscopy was performed and evaluation of the bilateral bladder flores did not show any evidence of injury. There was bilateral ureteral jetting noted with cystoscopy. The cystoscopy portion of the procedure was completed at this time. A Woodward scissors was used between the urethral sling and urethra to allow for a tension- free placement of the tape. The ends of the tape were then cut at the level of the skin on the patient on both sides at the stab incisions. Attention was then turned to the midline incision, which was closed using 3-0 Monocryl in a running fashion. The skin incisions were closed using Dermabond glue. The patient was awoken from general anesthesia and taken to the PACU for recovery in stable condition. She will be discharged to home once she is able to meet all postoperative milestones including tolerating small amount of oral intake and liquids, ambulate without difficulty, her pain controlled with oral medications and able to void without difficulty. She will follow-up in the clinic in 2 weeks or earlier as needed. Sponge, lap, needle, and instrument counts were correct x 2. Brief History: The patient was seen in the preoperative holding area and risks, benefits, indications, and alternatives of the procedure were reviewed with the patient and she desired to proceed with a laparoscopic assisted vaginal hysterectomy, bilateral salpingectomy, right oophorectomy, possible bilateral salpingo-oophorectomy, transvaginal mid-urethral sling, possible anterior and posterior repair and possible total abdominal hysterectomy. Consents were reviewed. The patient was taken back to the OR and given general anesthesia with an endotracheal tube which was placed without difficulty. She was placed in dorsal lithotomy position using Yellofin stirrups. She was prepped and draped in normal sterile fashion. A Villegas catheter was placed without difficulty. Attention was then turned to her umbilicus and a 5 mm stab incision was made with a scalpel and a Veress needle was then inserted through the incision. The gas was turned on, with an opening pressure of 6 mmHg. Pneumoperitoneum was continued until 15 mmHg pressure. A 5 mm trocar was then inserted under direct visualization through the incision without difficulty. Attention was then turned to the patient's right lower quadrant where an avascular space approximately long-term between the ASIS and the umbilicus was identified. A 5 mm incision was made with a scalpel. A 5 mm trocar was then inserted under direct visualization of the laparoscope. Attention was then turned to the left lower quadrant, where again an avascular portion of the abdominal wall was identified approximately long-term between the ASIS and the umbilicus. A scalpel was used to make a 5 mm incision. A 5 mm trocar was inserted under direct visualization with the laparoscope. Attention was then turned to the pelvis where the uterus was visualized and noted be normal in appearance with normal appearing bilateral fallopian tubes and normal-appearing bilateral ovaries. The atraumatic grasper was then removed from the right lower trocar and a Enseal vessel sealing device was introduced and used to take down the adhesions from the descending colon to the lateral abdominal sidewall without difficulty. The Enseal device was then used to transect the infundibulopelvic ligament. The mesosalpinx connecting the right fallopian tube and ovary was transected from the underlying tissue to the level of the right round ligament. The right round ligament and right side of the uterus and broad ligament were then transected using the Enseal vessel sealing device until the level of the uterovesical peritoneal reflection. A bladder flap was created by dissecting the overlying peritoneal tissue from the lower uterine segment and pushed away using the Enseal vessel sealing device. This was repeated on the patient's left side. The fallopian tube was transected from the mesosalpinx using the Enseal vessel sealing device. The utero-ovarian ligament was then transected using Enseal vessel sealing device. The left round ligament was transected using Enseal vessel sealing device and the broad ligament was transected to the level of the uterovesical peritoneal reflection. The pelvis was then inspected for hemostasis at this time and hemostasis was noted. All instruments were removed from the abdomen. Attention was then turned to the patient's perineum where a weighted speculum was placed into the vagina and a Colebrook retractor was used to visualize the cervix. The cervix was grasped with a double-tooth tenaculum. The cervical reflection point was then injected circumferentially with sterile saline for hydrodissection. The cervix was then circumferentially incised with a scalpel. The bladder was then dissected off the pubovesical cervical fascia anteriorly with Metzenbaum scissors. The same procedure was performed posteriorly and the posterior cul-de- sac was entered sharply without difficulty using Metzenbaum scissors. At this point, an Enseal vessel sealing device was placed over the uterosacral ligaments on the patient's left side. These were cauterized and ligated with the device. This was repeated on the patient's right side. Hemostasis was assured. The cardinal ligaments were then clamped on both sides using the Enseal vessel sealing device, cauterized and transected with the device. At this time a Metzenbaum scissors was able to be used to enter the anterior cul-de -sac without difficulty with sharp dissection. The uterine artery on the patient's left side and the remainder of the broad ligament were then serially clamped with the Enseal vessel sealing device, cauterized and transected with the device. This was repeated on the right side with clamping of the right uterine artery and the remainder of the broad ligament were serially clamped, cauterized and transected using the Enseal vessel sealing device. Excellent hemostasis was noted. The cervix and uterus was able to be delivered at this time. The posterior vaginal cuff was closed with running locked sutures of 0 Monocryl. The vaginal cuff was then closed in a horizontal fashion using running locked sutures with 0 Monocryl suture. After the uterus was removed and exam was performed and there was noted to be very minimal cystocele or rectocele and decision was made to not perform anterior or posterior repair. All instruments were removed from the vagina. Attention was then turned to the abdomen where a laparoscope was inserted and was used to check for hemostasis. Hemostasis was noted at this time. The gas was then evacuated from the peritoneum and trocars removed. These were closed using 4-0 Monocryl suture and Dermabond. An Allis clamp was placed approximately 2 cm below the urethral opening. A second Allis clamp was placed 2 cm below the first Allis clamp. The vaginal mucosa was then injected with sterile saline. A scalpel was used to make a midline incision through the vaginal mucosa. Woodward scissors were used to dissect the vaginal mucosa from the underlying tissue on the patient's right side. This was carried out to the pubic rami. This was repeated on the left side and completed without difficulty. Attention was then turned to the patient 's mons and a stab incision was made with a scalpel on the bilateral sides without complications. The urethral sling hook was then used on the patient's left side and placed through the stab incision and with a finger in the vagina behind the pubic rami, the tip of the hook was felt and then directed out through the midline vaginal incision. The transvaginal tape was attached to the hook and pulled through the incision. Attention was then turned to the patient's right side where, again, the urethral sling hook was placed through the stab incision and with a finger in the vagina was directed posterior to the lateral pubic rami and directed through the vaginal incision. The other end of the tape was attached to the hook and pulled through, making sure that the tape was flat under the patient's urethra. The bladder was then filled with 240 mL of sterile saline through the previously inserted urethral catheter. The urethral catheter was removed at this time. A simple cystoscopy was performed and evaluation of the bilateral bladder flores did not show any evidence of injury. There was bilateral ureteral jetting noted with cystoscopy. The cystoscopy portion of the procedure was completed at this time. A Woodward scissors was used between the urethral sling and urethra to allow for a tension- free placement of the tape. The ends of the tape were then cut at the level of the skin on the patient on both sides at the stab incisions. Attention was then turned to the midline incision, which was closed using 3-0 Monocryl in a running fashion. The skin incisions were closed using Dermabond glue. The patient was awoken from general anesthesia and taken to the PACU for recovery in stable condition. She will be discharged to home once she is able to meet all postoperative milestones including tolerating small amount of oral intake and liquids, ambulate without difficulty, her pain controlled with oral medications and able to void without difficulty. She will follow-up in the clinic in 2 weeks or earlier as needed. Sponge, lap, needle, and instrument counts were correct x 2. Diagnosis: Stroke: No - Discharge Data Discharge Date: 09/27/19 Discharge Disposition: Home, Self-Care 01 Condition: Good - Referral to Home Health Primary Care Physician: Cara Leiva - Discharge Diagnosis/Problem(s) (1) Postmenopausal bleeding SNOMED Code(s): 96335660 ICD Code: N95.0 - POSTMENOPAUSAL BLEEDING Status: Acute Current Visit: Yes (2) History of endometrial ablation SNOMED Code(s): 713820245631178 ICD Code: Z98.890 - OTHER SPECIFIED POSTPROCEDURAL STATES Status: Acute Current Visit: Yes (3) Female pelvic pain SNOMED Code(s): 456047106 ICD Code: R10.2 - PELVIC AND PERINEAL PAIN Status: Acute Current Visit: Yes (4) ROSENDA (stress urinary incontinence, female) SNOMED Code(s): 36997716 ICD Code: N39.3 - STRESS INCONTINENCE (FEMALE) (MALE) Status: Acute Current Visit: Yes - Patient Summary/Data Operative Procedure(s) Performed: Laparoscopic-assisted vaginal hysterectomy, bilateral salpingectomy, right oophorectomy, transvaginal tape mid urethral sling and cystoscopy Hospital Course: Patient was kept for monitoring and observation status post laparoscopic assisted vaginal hysterectomy, bilateral salpingectomy, right oophorectomy, transvaginal tape mid urethral sling and cystoscopy. She was kept for observation for ongoing pain control and to ensure that she did not have any postoperative complications given remote distance of over 1 hour to her home from the hospital. Overnight her pain was able to be moderately well controlled with oral pain medications including ibuprofen, Blacklick and oxycodone for breakthrough pain. She was ambulating without difficulty. She was voiding without difficulty. She was passing flatus but had not had a bowel movement. She had minimal bleeding vaginally. In the morning of postoperative day #1 she desired to be discharged home. She was discharged home with concerning symptoms that she should monitor for and she states understanding. Patient to return to clinic in 2 weeks or earlier as needed for any problems as they may arise. - Patient Instructions Diet: Regular Diet as Tolerated Activity: Apply Ice, As Tolerated, No Lifting Over 20 Pounds Activity, Other: Nothing in the vagina for 6 weeks Driving: Do Not Drive (While taking narcotic medications are having a significant pain) Showering/Bathing: May Shower, No Tub Bathing/Swimming (For 2 weeks) Wound/Incision Care: Keep Operative Site/Wound Site Clean and Dry Notify Provider of: Fever, Increased Pain, Swelling and Redness, Drainage, Nausea and/or Vomiting Other/Special Instructions: Please contact your physician's office if you note any bleeding or pus coming from the abdominal incisions. Please contact your physician's office if you have heavy vaginal bleeding enough to soak a pad in less than an hour. - Discharge Plan *PRESCRIPTION DRUG MONITORING PROGRAM REVIEWED*: Yes *COPY OF PRESCRIPTION DRUG MONITORING REPORT IN PATIENT VICKI: Yes Prescriptions/Med Rec: Acetaminophen/HYDROcodone [Blacklick 325-10 MG] 1 tab PO Q6H PRN #12 tablet PRN Reason: Pain Ibuprofen 600 mg PO Q6H PRN #60 tablet PRN Reason: Pain oxyCODONE 5 - 10 mg PO Q4H PRN #30 tab PRN Reason: Pain Home Medications: Home Meds Atenolol 100 mg PO DAILY 02/02/18 [History] hydroCHLOROthiazide [Hydrochlorothiazide] 25 mg PO DAILY 02/02/18 [History] lamoTRIgine [Lamotrigine] 300 mg PO BID 02/02/18 [History] Acyclovir [Zovirax] 800 mg PO TID PRN 12/13/18 [History] Carisoprodol [Soma] 350 mg PO TID PRN 12/13/18 [History] Hydrocodone/Acetaminophen [Hydrocodon-Acetaminophn 10-325] 1 tab PO Q6H PRN 11/02 [History] Ondansetron [Zofran ODT] 4 mg PO Q6H PRN #20 tab.dis 12/13/18 [Rx] Potassium Chloride [Klor-Con M20] 20 meq PO BID 12/13/18 [History] ALPRAZolam [Xanax] 2 mg PO BID PRN 06/06/19 [History] Famotidine [Pepcid] 20 mg PO BID PRN 09/25/19 [History] Pravastatin Sodium [Pravachol] 20 mg PO DAILY 09/25/19 [History] Acetaminophen/HYDROcodone [Blacklick 325-10 MG] 1 tab PO Q6H PRN #12 tablet [Rx] Ibuprofen 600 mg PO Q6H PRN #60 tablet 09/26/19 [Rx] oxyCODONE 5 - 10 mg PO Q4H PRN #30 tab 09/26/19 [Rx] Patient Handouts: Laparoscopically Assisted Vaginal Hysterectomy, Care After, Urethral Vaginal Sling, Care After Referrals: Leonel Soria MD [Physician] - (Follow-up in 2 weeks for routine postoperative appointment or earlier as needed. Please call clinic on Sunday and make an appointment.) - Discharge Summary/Plan Comment DC Time >30 min.: No - Patient Data Vitals - Most Recent: Last Vital Signs Temp 36.8 C 09/27/19 01:12 Pulse 72 09/27/19 08:28 Resp 12 09/27/19 01:12 BP 134/93 H 09/27/19 08:28 Pulse Ox 95 09/27/19 01:12 Weight - Most Recent: 95.254 kg I&O - Last 24 hours: Intake & Output 09/26/19 09/27/19 09/27/19 22:59 06:59 14:59 Intake Total 180 1400 Balance 180 1400 Lab Results - Last 24 hrs: Laboratory Results - last 24 hr 09/26/19 Range/Units 08:41 Blood Type AB POSITIVE Gel Antibody Screen Negative Med Orders - Current: Current Medications Hydrocodone Bitart/Acetaminophen (Blacklick 325-10 Mg) 1 tab PO Q6H PRN PRN Reason: Pain Last Admin: 09/27/19 08:29 Dose: 1 tab Acyclovir (Zovirax) 800 mg PO TID PRN PRN Reason: Other Atenolol (Tenormin) 100 mg PO DAILY [facility] Last Admin: 09/27/19 08:28 Dose: 100 mg Famotidine (Pepcid) 20 mg PO BID PRN PRN Reason: gi upset Hydrochlorothiazide (Hydrochlorothiazide) 25 mg PO DAILY [facility] Last Admin: 09/27/19 08:28 Dose: 25 mg Lamotrigine (Lamotrigine) 300 mg PO BID [facility] Last Admin: 09/27/19 08:27 Dose: 300 mg Miscellaneous Information (Remove Patch) 0 ea TRDERM BEDTIME [facility] Nicotine (Habitrol) 21 mg TRDERM BEDTIME [facility] Last Admin: 09/26/19 20:37 Dose: 21 mg Carisoprodol 350 Mg (TabOwn Med) 350 mg PO TID PRN PRN Reason: Pain Last Admin: 09/27/19 05:28 Dose: 350 mg Ondansetron HCl (Zofran Odt) 4 mg PO Q6H PRN PRN Reason: Nausea/Vomiting Alprazolam 2 Mg Tab Patient's Own Med 0 each PO BID PRN PRN Reason: Anxiety Last Admin: 09/26/19 17:08 Dose: 1 each Potassium Chloride (Klor-Con M20) 20 meq PO BID [facility] Last Admin: 09/27/19 08:28 Dose: 20 meq Simvastatin (Zocor) 10 mg PO BEDTIME [facility] Discontinued Medications Albuterol (Proventil Neb Soln) 2.5 mg NEB ONETIME [facility] Stop: 09/26/19 16:00 Last Admin: 09/26/19 09:32 Dose: 2.5 mg Alprazolam (Xanax) 2 mg PO BID PRN PRN Reason: Anxiety Bupivacaine HCl (Marcaine 0.5%) Confirm Administered Dose 30 ml .ROUTE .STK-MED ONE Stop: 09/26/19 09:04 Cefazolin Sodium (Ancef) Confirm Administered Dose 2 gm .ROUTE .STK-MED ONE Stop: 09/26/19 09:20 Dexamethasone (Dexamethasone) Confirm Administered Dose 20 mg .ROUTE .STK-MED ONE Stop: 09/26/19 09:20 Fentanyl (Sublimaze) Confirm Administered Dose 250 mcg .ROUTE .STK-MED ONE Stop: 09/26/19 09:21 Fentanyl (Sublimaze) Confirm Administered Dose 250 mcg .ROUTE .STK-MED ONE Stop: 09/26/19 11:24 Fentanyl (Sublimaze) 50 mcg IVPUSH Q5M PRN PRN Reason: Pain Stop: 09/26/19 15:00 Last Admin: 09/26/19 14:14 Dose: 50 mcg Hydromorphone HCl (Dilaudid) Confirm Administered Dose 0.5 mg .ROUTE .STK-MED ONE Stop: 09/26/19 09:20 Hydromorphone HCl (Dilaudid) Confirm Administered Dose 0.5 mg .ROUTE .STK-MED ONE Stop: 09/26/19 11:24 Hydromorphone HCl (Dilaudid) 0.5 mg IVPUSH Q10M PRN PRN Reason: Pain (severe 7-10) Stop: 09/26/19 15:00 Last Admin: 09/26/19 14:05 Dose: 0.5 mg Lactated Ringer's (Ringers, Lactated) 1,000 mls @ 125 mls/hr IV ASDIRECTED [facility] Lactated Ringer's (Ringers, Lactated) 1,000 mls @ 125 mls/hr IV ASDIRECTED [facility] Stop: 09/26/19 23:00 Last Admin: 09/26/19 08:40 Dose: 125 mls/hr Sodium Chloride (Normal Saline) Confirm Administered Dose 20 mls @ as directed .ROUTE .STK-MED ONE Stop: 09/26/19 09:06 Lidocaine HCl (Xylocaine-Mpf 1%) Confirm Administered Dose 6 mls @ as directed .ROUTE .STK-MED ONE Stop: 09/26/19 09:20 Lactated Ringer's (Ringers, Lactated) Confirm Administered Dose 1,000 mls @ as directed .ROUTE .STK-MED ONE Stop: 09/26/19 09:20 Acetaminophen (Ofirmev) 100 mls @ 400 mls/hr IV NOW ONE Stop: 09/26/19 10:04 Last Admin: 09/26/19 10:01 Dose: 400 mls/hr Lactated Ringer's (Ringers, Lactated) Confirm Administered Dose 1,000 mls @ as directed .ROUTE .STK-MED ONE Stop: 09/26/19 12:19 Promethazine HCl 12.5 mg/ (Sodium Chloride) 50.5 mls @ 100 mls/hr IV ONETIME PRN PRN Reason: Nausea Stop: 09/26/19 16:00 Last Admin: 09/26/19 13:36 Dose: 100 mls/hr Ketorolac Tromethamine (Toradol) Confirm Administered Dose 30 mg .ROUTE .STK- MED ONE Stop: 09/26/19 09:20 Lidocaine/Epinephrine (Xylocaine 1% With Epinephrine 1:100,000) Confirm Administered Dose 20 ml .ROUTE .STK-MED ONE Stop: 09/26/19 09:03 Lidocaine/Sodium Bicarbonate (Buffered Lidocaine 1% In Ns 8.4%) 0.25 ml IDERM ONETIME PRN PRN Reason: Prior to IV Start Lidocaine/Sodium Bicarbonate (Buffered Lidocaine 1% In Ns 8.4%) 0.25 ml IDERM ONETIME PRN PRN Reason: Prior to IV Start Stop: 09/26/19 18:00 Midazolam HCl (Versed 1 Mg/Ml) Confirm Administered Dose 2 mg .ROUTE .STK-MED ONE Stop: 09/26/19 09:20 Midazolam HCl (Versed 1 Mg/Ml) 2 mg IVPUSH ONETIME PRN PRN Reason: Sedation Stop: 09/26/19 16:00 Midazolam HCl (Versed 1 Mg/Ml) 2 mg IVPUSH ONETIME ONE Stop: 09/26/19 14:19 Last Admin: 09/26/19 14:21 Dose: 2 mg Midazolam HCl (Versed 1 Mg/Ml) Confirm Administered Dose 2 mg .ROUTE .STK-MED ONE Stop: 09/26/19 14:21 Last Admin: 09/26/19 18:53 Dose: Not Given Ondansetron HCl (Zofran) Confirm Administered Dose 4 mg .ROUTE .STK-MED ONE Stop: 09/26/19 09:20 Propofol (Diprivan 20 Ml) Confirm Administered Dose 200 mg .ROUTE .STK-MED ONE Stop: 09/26/19 09:20 Rocuronium [place]ola (Zemuron) Confirm Administered Dose 100 mg .ROUTE .STK-MED ONE Stop: 09/26/19 09:20 Sodium Chloride (Saline Flush) 10 ml FLUSH ASDIRECTED PRN PRN Reason: Keep Vein Open Sodium Chloride (Saline Flush) 10 ml FLUSH ASDIRECTED PRN PRN Reason: Keep Vein Open Stop: 09/26/19 18:00 Sodium Chloride (Normal Saline) Confirm Administered Dose 50 ml .ROUTE .STK-MED ONE Stop: 09/26/19 10:59 Last Admin: 09/26/19 11:33 Dose: 20 ml
[2019-09-27] MEDS ORDERED: Simvastatin 10 MG Tab PO SCH (21:00)
== END 2019-09-27 10:01 | disposition home or self-care (01) ==
LOC: JD.SDS 07:55 → JD.MS 15:28 → JD.SDS 09-27 10:01
PROVIDERS: ATTEND Obstetrics & Gynecology
DX: D25.9 Leiomyoma of uterus, unspecified (principal); N83.8 Other noninflammatory disorders of ovary, fallopian tube and broad ligament; N39.3 Stress incontinence (female) (male); K66.0 Peritoneal adhesions (postprocedural) (postinfection); I10 Essential (primary) hypertension; K21.9 Gastro-esophageal reflux disease without esophagitis; F17.210 Nicotine dependence, cigarettes, uncomplicated; F41.9 Anxiety disorder, unspecified; G40.909 Epilepsy, unspecified, not intractable, without status epilepticus; G30.9 Alzheimer's disease, unspecified; G43.909 Migraine, unspecified, not intractable, without status migrainosus; M06.9 Rheumatoid arthritis, unspecified; Z88.4 Allergy status to anesthetic agent; Z88.8 Allergy status to other drugs, medicaments and biological substances; Z79.899 Other long term (current) drug therapy
CPT/HCPCS: 36415; 57288; 58552; 81001; 81025; 86850; 86900; 86901; 94640; A9270; C1771; J0131; J0690; J1100; J1170; J1885; J2001; J2250; J2405; J2550; J2704; J3010; J7050; J7120; 00944; J3490

== ENCOUNTER 2021-01-17 21:53 | Emergency (ER) | payer OTHER ==
--- NOTE | 2021-01-17 22:35 | EDM.PDOC ---
ED HPI GENERAL MEDICAL PROBLEM - General Chief Complaint: Abdominal Pain Stated Complaint: HIP PAIN Time Seen by Provider: 01/17/21 22:35 - History of Present Illness INITIAL COMMENTS - FREE TEXT/NARRATIVE: 55-year-old female presents the emergency room with abdominal pain. This pain has been going on now for 2 days progressively getting worse it is on the left side and lower most portion of her abdomen. She has not had any d iarrhea or blood in her stools. She does have a history of diverticulitis. Its been about 3 years since her last episode of diverticulitis. She is not aware of any fevers or chills. No burning or frequency with urination. Patient's med list is incomplete she is not currently taking Soma or Xanax at this time. She would like something for the pain. Left Lower Abdomen Pain Score (Numeric/FACES): 6 - Related Data Allergies Allergy/AdvReac Type Severity Reaction Status Date / Time bee venom protein (honey bee) Allergy Cannot Verified 01/17/21 22:01 Remember indomethacin [From Indocin] Allergy Anaphylactic Verified 01/17/21 22:01 Shock kiwi Allergy Cannot Verified 01/17/21 22:01 Remember lidocaine Allergy Edema Verified 01/17/21 22:01 NSAIDS (Non-Steroidal Allergy Other Verified 01/17/21 22:01 Anti-Inflamma procaine Allergy Swelling Verified 01/17/21 22:01 sumatriptan [From Imitrex] Allergy Cannot Verified 01/17/21 22:01 Remember levetiracetam [From Keppra] AdvReac Vomiting Verified 01/17/21 22:01 Home Meds: Home Meds atenoloL [Atenolol] 100 mg PO DAILY 02/02/18 [History] hydroCHLOROthiazide [Hydrochlorothiazide] 25 mg PO DAILY 02/02/18 [History] lamoTRIgine [Lamotrigine] 300 mg PO BID 02/02/18 [History] Acyclovir [Zovirax] 800 mg PO TID PRN 12/13/18 [History] Hydrocodone/Acetaminophen [Hydrocodone-Acetamin 10-325 mg] 1 tab PO Q6H PRN 12/13/18 [History] Ondansetron [Zofran ODT] 4 mg PO Q6H PRN #20 tab.dis 12/13/18 [Rx] Potassium Chloride [Klor-Con M20] 20 meq PO BID 12/13/18 [History] carisoprodoL [Soma] 350 mg PO TID PRN 12/13/18 [History] ALPRAZolam [Xanax] 2 mg PO BID PRN 06/06/19 [History] Famotidine [Pepcid] 20 mg PO BID PRN 09/25/19 [History] Pravastatin Sodium [Pravachol] 20 mg PO DAILY 09/25/19 [History] Acetaminophen/HYDROcodone [Jakin 325-10 MG] 1 tab PO Q6H PRN #12 tablet 09/26/19 [Rx] Ibuprofen 600 mg PO Q6H PRN #60 tablet 09/26/19 [Rx] oxyCODONE 5 - 10 mg PO Q4H PRN #30 tab 09/26/19 [Rx] Ciprofloxacin [Ciprofloxacin HCl] 500 mg PO BID #18 tab 01/18/21 [Rx] metroNIDAZOLE [Flagyl] 500 mg PO TID #29 tablet 01/18/21 [Rx] Past Medical History HEENT History: Reports: Impaired Vision Other HEENT History: wears eyeglasses. Polyps in nose. Cardiovascular History: Reports: CAD, High Cholesterol, Hypertension, PA Other Cardiovascular History: hypokalemia Respiratory History: Reports: Asthma Gastrointestinal History: Reports: Diverticulosis, GERD, Hiatal Hernia Genitourinary History: Reports: Urinary Incontinence PARQUETRY LAYER History: Reports: Endometrial Ablation, Endometriosis, Musculoskeletal History: Reports: Back Pain, Chronic, Osteoarthritis, RA Neurological History: Reports: Cerebral Aneurysms, CVA, Headaches, Chronic, Seizure Other Neuro History: right cva Psychiatric History: Reports: Anxiety, Depression Other Psychiatric History: cigarettes Endocrine/Metabolic History: Reports: Obesity/BMI 30+ Hematologic History: Reports: Anemia Other Hematologic History: in Immunologic History: Reports: None Oncologic (Cancer) History: Reports: None Dermatologic History: Reports: None - Infectious Disease History Infectious Disease History: Reports: Chicken Pox - Past Surgical History Head Surgeries/Procedures: Reports: None, Other (See Below) HEENT Surgical History: Reports: Adenoidectomy, Naso-Sinus Surgery, Tonsillectomy Other HEENT Surgeries/Procedures: Polyps in the sinuses removed once, but they grew back. Cardiovascular Surgical History: Reports: Aneurysm Other Cardiovascular Surgeries/Procedures: brain Respiratory Surgical History: Reports: None GI Surgical History: Reports: EGD Female Surgical History: Reports: Section, D&C, Endometrial Ablation, Hysterectomy Other Neurological Surgeries/Procedures: Coiled the brain anuerysms. Musculoskeletal Surgical History: Reports: None Oncologic Surgical History: Reports: Biopsy of Breast Social & Family History - Tobacco Use Tobacco Use Status *Q: Current Every Day Tobacco User Years of Tobacco use: 40 Packs/Tins Daily: 1 - Caffeine Use Caffeine Use: Reports: Coffee - Recreational Drug Use Recreational Drug Use: No - Living Situation & Occupation Living situation: Reports: , with Spouse Occupation: Employed ([employer]) ED ROS GENERAL - Review of Systems Review Of Systems: See Below Constitutional: Reports: No Symptoms HEENT: Reports: No Symptoms Respiratory: Reports: No Symptoms, Other (She has noticed some shortness of breath more so than she used to have with activity she is urged to quit smoking she does not have an active cough at this time) Cardiovascular: Reports: No Symptoms GI/Abdominal: Reports: Abdominal Pain. Denies: Constipation, Diarrhea, Nausea, Vomiting : Reports: No Symptoms Skin: Reports: No Symptoms Neurological: Reports: No Symptoms ED EXAM, GENERAL - Physical Exam Exam: See Below Exam Limited By: No Limitations General Appearance: Alert, No Apparent Distress Head: Atraumatic, Normocephalic Neck: Normal Inspection, Supple, Non-Tender, Full Range of Motion Respiratory/Chest: No Respiratory Distress, Lungs Clear, Normal Breath Sounds Cardiovascular: Normal Peripheral Pulses, Regular Rate, Rhythm, No Edema GI/Abdominal: Normal Bowel Sounds, Soft, Non-Tender Back Exam: Normal Inspection, Full Range of Motion. No: CVA Tenderness (L), CVA Tenderness (R) Extremities: Normal Inspection, No Pedal Edema Neurological: Alert, Oriented, Normal Cognition Course - Vital Signs Last Recorded V/S: Last Vital Signs Temp 36.2 C 01/17/21 21:59 Pulse 78 01/17/21 21:59 Resp 15 01/17/21 21:59 BP 158/70 H 01/17/21 21:59 Pulse Ox 98 01/17/21 21:59 - Orders/Labs/Meds Orders: Active Orders 24 hr Category Date Time Status Abdomen Pelvis w Cont [CT] Stat Exams 01/17/21 23:18 Taken levoFLOXacin [Levaquin] Med 01/18/21 02:16 Once 500 mg PO ONETIME ONE metroNIDAZOLE [Flagyl] Med 01/18/21 02:16 Once 500 mg PO ONETIME ONE Medication Orders Levofloxacin (Levofloxacin 500 Mg Tab) 500 mg PO ONETIME ONE Stop: 01/18/21 02:17 Labs: Laboratory Tests 01/17/21 01/17/21 01/17/21 Range/Units 23:25 23:30 23:30 WBC 11.48 H (3.98-10.04) K/mm3 RBC 4.25 (3.98-5.22) M/mm3 Hgb 14.0 (11.2-15.7) gm/dl Hct 41.2 (34.1-44.9) % MCV 96.9 H (79.4-94.8) fl MCH 32.9 H (25.6-32.2) pg MCHC 34.0 (32.2-35.5) g/dl RDW Std Deviation 44.1 (36.4-46.3) fL Plt Count 246 (182-369) K/mm3 MPV 10.0 (9.4-12.3) fl Neut % (Auto) 54.5 (34.0-71.1) % Lymph % (Auto) 35.7 (19.3-51.7) % [place] % (Auto) 5.8 (4.7-12.5) % Eos % (Auto) 3.2 (0.7-5.8) Baso % (Auto) 0.3 (0.1-1.2) % Neut # (Auto) 6.25 H (1.56-6.13) K/mm3 Lymph # (Auto) 4.10 H (1.18-3.74) K/mm3 [place] # (Auto) 0.67 H (0.24-0.36) K/mm3 Eos # (Auto) 0.37 H (0.04-0.36) K/mm3 Baso # (Auto) 0.03 (0.01-0.08) K/mm3 Manual Slide Review Normal smear Sodium 142 (136-145) mEq/L Potassium 3.3 L (3.5-5.1) mEq/L Chloride 102 (98-107) mEq/L Carbon Dioxide 30 (21-32) mEq/L Anion Gap 13.3 (5-15) BUN 12 (7-18) mg/dL Creatinine 0.9 (0.55-1.02) mg/dL Est Cr Clr Drug Dosing 78.94 mL/min Estimated GFR (MDRD) > 60 (>60) mL/min BUN/Creatinine Ratio 13.3 L (14-18) Glucose 92 (74-106) mg/dL Calcium 8.9 (8.5-10.1) mg/dL Total Bilirubin 0.3 (0.2-1.0) mg/dL AST 17 (15-37) U/L ALT 35 (14-59) U/L Alkaline Phosphatase 137 H (46-116) U/L Total Protein 7.7 (6.4-8.2) g/dl Albumin 3.9 (3.4-5.0) g/dl Globulin 3.8 gm/dL Albumin/Globulin Ratio 1.0 (1-2) Urine Color Yellow (Yellow) Urine Appearance Clear (Clear) Urine pH 7.0 (5.0-8.0) Ur Specific [place] 1.020 (1.005-1.030) Urine Protein Negative (Negative) Urine Glucose (UA) Negative (Negative) Urine Ketones Negative (Negative) Urine Occult Blood Negative (Negative) Urine Nitrite Negative (Negative) Urine Bilirubin Negative (Negative) Urine Urobilinogen 0.2 (0.2-1.0) Ur Leukocyte Esterase Negative (Negative) Meds: Medications Generic Name Dose Route Start Last Admin Trade Name Lashanda PRN Reason Stop Dose Admin Levofloxacin 500 mg 01/18/21 02:16 Levofloxacin 500 Mg Tab PO 01/18/21 02:17 ONETIME ONE Discontinued Medications Generic Name Dose Route Start Last Admin Trade Name Lashanda PRN Reason Stop Dose Admin Hydromorphone HCl 0.5 mg 01/17/21 23:19 01/17/21 23:40 Hydromorphone 0.5 Mg/0.5 Ml Syringe IVPUSH 01/17/21 23:20 0.5 mg ONETIME ONE Administration Sodium Chloride 1,000 mls @ 999 mls/hr 01/17/21 23:19 01/17/21 23:39 Normal Saline IV 01/18/21 00:19 999 mls/hr ONETIME ONE Administration Potassium Chloride 40 meq 01/18/21 00:28 Potassium Chloride 20 Meq Tab.Er PO 01/18/21 00:29 ONETIME ONE - Re-Assessments/Exams Free Text/Narrative Re-Assessment/Exam: 01/17/21 23:38 I have ordered some IV fluids anticipating abdominal pelvic CT. This is ordered as well as abdominal labs. Will give half milligram of Dilaudid for her pain. 01/18/21 02:18 Patient's potassium was on the low side, white count was a little high nonspecific differential. CT evaluation was nondiagnostic. I had a long discussion with the patient about the CT findings and with the possibility of an early diverticulitis the patient would like to be treated. We will start her on oral therapy for this. The patient agrees to return to the emergency room if not significantly better in 48 h sooner if getting worse. Departure - Departure Time of Disposition: 02:19 Disposition: Home, Self-Care 01 Clinical Impression: Diverticulitis, Abdominal pain - Discharge Information Referrals: PCP,Not In Area [Primary Care Provider] - Forms: ED Department Discharge Additional Instructions: Turn to the emergency room with any questions problems or worsening symptoms. Return in 24 to 48 h if not improving. Return sooner if getting worse. You have been started on Cipro and Flagyl take as directed these have been sent electronically to [facility] [place] pharmacy. Follow-up in the clinic in 2 to 3 days if needed. Push lots of fluids. Sepsis Event Note (ED) - Evaluation Sepsis Screening Result: No Definite Risk - Focused Exam Vital Signs: Vital Signs Temp Pulse Resp BP Pulse Ox 01/17/21 21:59 36.2 C 78 15 158/70 H 98 - My Orders Last 24 Hours: My Active Orders 01/17/21 23:18 Abdomen Pelvis w Cont [CT] Stat 01/18/21 02:16 levoFLOXacin [Levaquin] 500 mg PO ONETIME ONE metroNIDAZOLE [Flagyl] 500 mg PO ONETIME ONE - Assessment/Plan Last 24 Hours: My Active Orders 01/17/21 23:18 Abdomen Pelvis w Cont [CT] Stat 01/18/21 02:16 levoFLOXacin [Levaquin] 500 mg PO ONETIME ONE metroNIDAZOLE [Flagyl] 500 mg PO ONETIME ONE
[2021-01-17] MEDS ORDERED: Sodium Chloride 0.9% 1,000 ML IV ONE (23:19)
[2021-01-17] MEDS ORDERED: HYDROmorphone 0.5 MG/0.5 ML Syringe IVPUSH ONE (23:19)
[2021-01-18] MEDS ORDERED: Potassium Chloride 20 MEQ Tab.ER PO ONE (00:28)
[2021-01-18] MEDS ORDERED: Levofloxacin 500 MG Tab PO ONE (02:16)
[2021-01-18] MEDS ORDERED: metroNIDAZOLE 500 MG Tab PO ONE (02:16)
--- NOTE | 2021-01-18 08:57 | CT ---
CT abdomen and pelvis Technique: Multiple axial sections were obtained from above the dome of the diaphragm inferiorly through the pubic symphysis. Intravenous and oral contrast was given. Delayed images were also obtained through the bladder. Reconstructed coronal and sagittal images were obtained. Comparison: No prior CT abdomen or pelvis exam is available. Findings: Visualized lung bases show nothing acute. Gallbladder contains no calcified gallstones. Biliary tree is partially seen within the liver which is most likely incidental. I do not see any extrahepatic biliary duct dilatation. No additional abnormality is appreciated within the liver. Spleen appears normal. Adrenal glands show no nodule. Pancreas appears within normal limits. Kidneys show symmetric contrast enhancement. Cyst is noted within the right kidney measuring 3.1 cm. No ureteral calcifications are seen. Scattered atherosclerotic calcification is seen within a nondilated abdominal aorta. Atherosclerotic calcification continues into the iliac vessels. No retroperitoneal adenopathy or mesenteric abnormalities are appreciated. Appendix is seen which is normal in size. No pelvic mass or adenopathy is seen. No free fluid or inflammatory change is appreciated. Minimal scattered diverticuli are seen. Delayed images show contrast within the distal ureters as well as within the bladder. Bone window settings were reviewed which show minimal scattered degenerative change within the spine. Mild degenerative change is seen within the sacroiliac joints. No acute osseous abnormality is appreciated. Impression: 1. Minimal prominence of the intrahepatic biliary ducts but no extrahepatic biliary dilatation is seen. This finding is most likely incidental if patient has no upper right quadrant symptoms. 2. Minimal diverticulosis. 3. Nothing acute is appreciated. Diagnostic code #2 I agree with preliminary report from [facility], finalized on 01/18/21, 3:07 AM CDT
== END 2021-01-18 02:30 | disposition home or self-care (01) ==
LOC: JD.ED 21:53
DX: K57.32 Diverticulitis of large intestine without perforation or abscess without bleeding (principal); I25.10 Atherosclerotic heart disease of native coronary artery without angina pectoris; E78.00 Pure hypercholesterolemia, unspecified; I10 Essential (primary) hypertension; I25.2 Old myocardial infarction; J45.909 Unspecified asthma, uncomplicated; E66.9 Obesity, unspecified; K21.9 Gastro-esophageal reflux disease without esophagitis; R56.9 Unspecified convulsions; Z72.0 Tobacco use; Z68.29 Body mass index [BMI] 29.0-29.9, adult; Z91.030 Bee allergy status; Z88.8 Allergy status to other drugs, medicaments and biological substances; Z91.018 Allergy to other foods; Z88.4 Allergy status to anesthetic agent; Z79.899 Other long term (current) drug therapy; Z86.73 Personal history of transient ischemic attack (TIA), and cerebral infarction without residual deficits
CPT/HCPCS: 36415; 74177; 80053; 81003; 85025; 96374; 99284; A9270; J1170; J7030; 99283

== ENCOUNTER 2022-01-15 18:47 | Emergency (ER) | payer SELFPAY ==
[2022-01-15] MEDS ORDERED: Ketorolac 30 MG/ML SDV IVPUSH ONE (19:56)
[2022-01-15] MEDS ORDERED: HYDROmorphone 0.5 MG/0.5 ML Syringe IVPUSH ONE (19:56)
[2022-01-15] MEDS ORDERED: Sodium Chloride 0.9% 10 ML Syringe FLUSH PRN (19:56)
[2022-01-15] MEDS ORDERED: Sodium Chloride 0.9% 1,000 ML IV SCH (20:00)
[2022-01-15] MEDS ORDERED: Cephalexin 500 MG Cap PO ONE (21:21)
[2022-01-15] MEDS ORDERED: Potassium Chloride 20 MEQ Tab.ER PO ONE (21:21)
== END 2022-01-15 21:52 | disposition home or self-care (01) ==
LOC: JD.ED 18:47
DX: N39.0 Urinary tract infection, site not specified (principal); R31.9 Hematuria, unspecified; E87.6 Hypokalemia; I10 Essential (primary) hypertension; I25.2 Old myocardial infarction; I25.10 Atherosclerotic heart disease of native coronary artery without angina pectoris; K21.9 Gastro-esophageal reflux disease without esophagitis; F41.9 Anxiety disorder, unspecified; F32.A Depression, unspecified; D64.9 Anemia, unspecified; F17.210 Nicotine dependence, cigarettes, uncomplicated; E66.9 Obesity, unspecified; Z68.25 Body mass index [BMI] 25.0-25.9, adult; Z91.030 Bee allergy status; Z91.018 Allergy to other foods; Z88.8 Allergy status to other drugs, medicaments and biological substances; Z79.899 Other long term (current) drug therapy; Z86.79 Personal history of other diseases of the circulatory system
CPT/HCPCS: 36415; 51701; 74176; 80053; 81001; 83690; 85025; 96374; 96375; 99284; A9270; J1170; J1885; J7030; 99285; J3490

== ENCOUNTER 2022-03-27 10:05 | Day surgery (SDC) | payer SELFPAY ==
[~2022-03-27 10:05] MED LIST changes: -Albuterol 0.083% 2.5 MG/3 ML Neb Soln NEB SCH; -Lidocaine 1%/Sod Bicarbonate in NS 8.4% 1 ML Syringe IDERM PRN; +Sodium Chloride 0.9% 10 ML Syringe FLUSH SCH
[2022-03-27] MEDS ORDERED: Albuterol 0.083% 2.5 MG/3 ML Neb Soln NEB SCH (10:19)
[2022-03-27] MEDS ORDERED: Bupivacaine 0.5%/EPINEPHrine 1:200,000 50 ML MDV ONE (10:27)
[2022-03-27] MEDS ORDERED: Dexamethasone 4 MG/ML 5 ML MDV ONE (10:30)
[2022-03-27] MEDS ORDERED: Neostigmine Methylsulfate 10 MG/10 ML MDV ONE (10:30)
[2022-03-27] MEDS ORDERED: Lidocaine 1% 0 ML ONE (10:30)
[2022-03-27] MEDS ORDERED: Ondansetron 4 MG/2 ML SDV ONE (10:30)
[2022-03-27] MEDS ORDERED: Rocuronium 50 MG/5 ML Vial ONE (10:30)
[2022-03-27] MEDS ORDERED: fentaNYL 100 MCG/2 ML SDV ONE ×2 (10:31→11:18)
[2022-03-27] MEDS ORDERED: Midazolam 1 MG/ML 2 ML SDV ONE (10:31)
[2022-03-27] MEDS ORDERED: Propofol 200 MG/20 ML SDV ONE (10:31)
[2022-03-27] MEDS ORDERED: HYDROmorphone 0.5 MG/0.5 ML Syringe ONE (10:34)
[2022-03-27] MEDS ORDERED: ceFAZolin 1 GM Vial ONE ×2 (11:18)
[2022-03-27] MEDS ORDERED: ePHEDrine 50 MG/ML SDV ONE (11:34)
[2022-03-27] MEDS: fentaNYL 100 MCG/2 ML SDV IVPUSH PRN ×2 (12:39→12:51)
[2022-03-27] MEDS ORDERED: Ondansetron 4 MG/2 ML SDV IVPUSH PRN (12:40)
[2022-03-27] MEDS ORDERED: HYDROmorphone 0.5 MG/0.5 ML Syringe IVPUSH PRN (12:40)
[2022-03-27] MEDS ORDERED: Acetaminophen/HYDROcodone 325-10 MG Tab PO SCH (13:05)
== END 2022-03-27 14:25 | disposition home or self-care (01) ==
LOC: JD.SDS 10:05
PROVIDERS: ATTEND Surgery
DX: K80.10 Calculus of gallbladder with chronic cholecystitis without obstruction (principal); F17.210 Nicotine dependence, cigarettes, uncomplicated; G30.9 Alzheimer's disease, unspecified; F02.80 Dementia in other diseases classified elsewhere, unspecified severity, without behavioral disturbance, psychotic disturbance, mood disturbance, and anxiety; H54.7 Unspecified visual loss; J45.909 Unspecified asthma, uncomplicated; I25.10 Atherosclerotic heart disease of native coronary artery without angina pectoris; I12.9 Hypertensive chronic kidney disease with stage 1 through stage 4 chronic kidney disease, or unspecified chronic kidney disease; F41.9 Anxiety disorder, unspecified; F32.A Depression, unspecified; I25.2 Old myocardial infarction; K21.9 Gastro-esophageal reflux disease without esophagitis; N18.9 Chronic kidney disease, unspecified; Z86.73 Personal history of transient ischemic attack (TIA), and cerebral infarction without residual deficits; Z79.899 Other long term (current) drug therapy
CPT/HCPCS: 00790; A9270-GY; J0690; J1100; J1170; J2250; J2405; J2704; J2710; J3010; J3490; J7120

== ENCOUNTER 2025-02-04 15:01 | Emergency (ER) | payer MEDICAID ==
[2025-02-04] MEDS: Ondansetron 4 MG/2 ML SDV IVPUSH ONE (16:21)
[2025-02-04] MEDS: Sodium Chloride 0.9% 1,000 ML IV ONE (16:21)
[2025-02-04 16:38] LABS: BASOPHILS PERCENT AUTO 0.4 % (0.0-1.0); EOSINOPHILS ABSOLUTE AUTO 0.1 K/mm3 (0.0-0.4); EOSINOPHILS PERCENT AUTO 0.6 % (0.0-6.0); HEMATOCRIT 42.2 % (37.0-47.0); IMMATURE GRAN ABSOLUTE AUTO 0.04 K/mm3 (0.00-0.05); IMMATURE GRAN PERCENT AUTO 0.4 % (0.0-0.4); LYMPHOCYTES ABSOLUTE AUTO 3.7 K/mm3 (1.0-4.8); LYMPHOCYTES PERCENT AUTO 38.1 % (24.0-44.0); MEAN CORPUSCULAR HEMOGLOBIN 31.4 pg (28.0-32.0); MEAN CORPUSCULAR HGB CONC 35.5 g/dl (32.0-36.0); MEAN CORPUSCULAR VOLUME 88.3 fl (83.0-99.0); MEAN PLATELET VOLUME 10.4 fl (9.4-12.3); MONOCYTES ABSOLUTE AUTO 0.4 K/mm3 (0.0-0.8); MONOCYTES PERCENT AUTO 4.3 % (0.0-8.0); NEUTROPHILS ABSOLUTE AUTO 5.5 K/mm3 (1.8-7.7); NEUTROPHILS PERCENT AUTO 56.2 % (41.0-71.0); PLATELET COUNT,PLT 317 K/mm3 (150-400); RED BLOOD CELL COUNT 4.78 M/mm3 (4.10-5.30); WHITE BLOOD CELL COUNT,WBC 9.72 K/mm3 (3.9-11.3)
[2025-02-04 16:45] LABS: APPEARANCE,URINE CLEAR (Clear); BILIRUBIN,URINE NEGATIVE (Negative); COLOR,URINE YELLOW (Yellow); GLUCOSE,URINE NEGATIVE (Negative); KETONES,URINE NEGATIVE (Negative); LEUKOCYTE ESTERASE,URINE NEGATIVE (Negative); NITRITE,URINE NEGATIVE (Negative); OCCULT BLOOD,URINE NEGATIVE (Negative); PROTEIN,URINE TRACE (Negative); UROBILINOGEN,URINE 0.2 (0.2-1.0)
[2025-02-04 17:01] LABS: A/G RATIO 1.1 (1-2); ANION GAP 12.3 (5-15); BILIRUBIN TOTAL 0.4 mg/dL (0.2-1.0); BUN/CREATININE RATIO 18.1 (14-18); CALCIUM 9.4 mg/dL (8.5-10.1); CREATININE 2.1 mg/dL (0.55-1.02); EST CRCL DRUG DOSING (CG) 32.24 mL/min; POTASSIUM,K 3.3 mEq/L (3.5-5.1); PROTEIN TOTAL,TP 7.7 g/dl (6.4-8.2)
[2025-02-04 17:17] LABS: BACTERIA,URINE FEW /hpf (FEW); MUCUS,URINE FEW /hpf (FEW); RBC,URINE 0-5 /hpf (0-5); WBC,URINE 0-5 /hpf (0-5)
[2025-02-04 17:24] LABS: BARBITURATE SCREEN,URINE NEGATIVE (CUTOFF=200); BENZODIAZEPINES SCREEN,URINE PRESUMPTIVE POSITIVE (CUTOFF=150); BUPRENORPHINE SCREEN,URINE NEGATIVE (CUTOFF=10); METHADONE SCREEN, URINE NEGATIVE (CUTOFF=200); METHAMPHETAMINES SCREEN, URINE PRESUMPTIVE POSITIVE (CUTOFF=500); OXYCODONE SCREEN,URINE NEGATIVE (CUT0FF=100); THC SCREEN,URINE 20 NG/ML NEGATIVE (CUTOFF=50)
[2025-02-04 17:33] LABS: AMPHETAMINES SCREEN, URINE PRESUMPTIVE POSITIVE (CUTOFF=500)
== END 2025-02-04 18:09 | disposition home or self-care (01) ==
LOC: JD.ED 15:01
DX: R42 Dizziness and giddiness (principal); N28.9 Disorder of kidney and ureter, unspecified; E86.0 Dehydration; E87.6 Hypokalemia; I12.9 Hypertensive chronic kidney disease with stage 1 through stage 4 chronic kidney disease, or unspecified chronic kidney disease; N18.9 Chronic kidney disease, unspecified; E66.9 Obesity, unspecified; Z68.25 Body mass index [BMI] 25.0-25.9, adult; Z91.030 Bee allergy status; Z88.8 Allergy status to other drugs, medicaments and biological substances; Z91.018 Allergy to other foods; Z79.899 Other long term (current) drug therapy
CPT/HCPCS: 36415; 80053; 80306; 80307; 81001; 82550; 83690; 83735; 84484; 85025; 87428; 93005; 96361; 96374; 99284; J2405; J7030; 93010; 99283